=== PATIENT | male | born 1945 | race Caucasian/White ===

== ENCOUNTER 2017-11-06 14:49 | Inpatient (IN) | payer OTHER ==
[2017-11-06] MEDS ORDERED: ACETAMINOPHEN 325 MG TAB PO PRN (15:38)
[2017-11-06] MEDS ORDERED: POLYETHYLENE GLYCOL 3350 17 GM PKT PO PRN (15:38)
[2017-11-06] MEDS ORDERED: MAG HYDROX/AL HYDROX/SIMETH 30 ML UDCUP PO PRN (15:38)
--- NOTE | 2017-11-06 15:52 | PDOREHIP ---
Admission [facility] - Admission - 3 Day Assessment Period Admission Date/Day 1: 11/06/17 Day 2: 11/07/17 Day 3: 11/08/17 - Active Diagnoses Comorbidities and Co-existing Conditions at Admission: 87711. None of the Above - Skin Conditions # Stage 1 Pressure Ulcers-Admission: 0 # Stage 2 Pressure Ulcers-Admission: 0 # Stage 3 Pressure Ulcers-Admission: 0 # Stage 4 Pressure Ulcers-Admission: 0 # Unstageable Pressure Ulcers (Non-remove Dress)-Admission: 0 # Unstageable Pressure Ulcers (Slough/Eschar)-Admission: 0 # Unstageable Pressure Ulcers (Deep Tissue Injury)-Admission: 0
[2017-11-06] MEDS ORDERED: OXYMETAZOLINE 30 ML NASAL SPRAY EACHNARE PRN (16:31)
[2017-11-06] MEDS ORDERED: CETIRIZINE 10 MG TAB PO PRN (16:31)
[2017-11-06] MEDS ORDERED: CALCIUM CARBONATE 500 MG CHEWABLE TAB PO PRN (16:31)
[2017-11-06] MEDS ORDERED: NITROGLYCERIN 0.4 MG BTL SL PRN (16:31)
[2017-11-06] MEDS ORDERED: ALBUTEROL 60 PUFFS/8 GM MDI IH PRN (16:31)
[2017-11-06] MEDS ORDERED: LACTULOSE 20 GM/30 ML UDCUP PO PRN (17:15)
--- NOTE | 2017-11-06 17:51 | GHP ---
DATE OF ADMISSION: 11/06/2017 TIME OF EVALUATION: 3 p.m. REFERRING FACILITY: [facility]. REFERRING PHYSICIAN: DR. EPHRAIM MORA IMPAIRMENT GROUP: Sixteen-debility (noncardiac-nonpulmonary). DATE OF ONSET: 09/13/2017. Post-admission Physician Evaluation And Rehabilitation Treatment Plan. REHABILITATION DIAGNOSES: Debility, gait dysfunction, weakness. ETIOLOGIC DIAGNOSIS hemothorax leading to intubation with subsequent pulseless electrical activity arrest x2. HISTORY OF PRESENT ILLNESS: A 72-year-old male who was admitted to [facility] from [facility] after a PEA arrest on 10/18/2017, secondary to probable hypoxia. This event required CPR x7 minutes. He is status post cardiac catheterization with DIANNE placed on 10/10/2017. He had been recently discharged from [facility] to [facility] on 10/13/2017, after a prolonged hospital course. The patient had positive sputum culture for Pseudomonas on October 13, 2017, at [facility] and was started on antibiotics. He had been initially admitted to [facility] for a VATS procedure on 09/15/2017 for hemothorax, complicated by PEA arrest with subsequent episode of ventricular tachycardia and ARDS. He required tracheostomy on 09/25/2017, with PEG tube placement 09/27/2017. He was subsequently decannulated on 11/02/2017. During that time, he had tube feeds with a PEG tube, in which the tube feeds were discontinued on 10/29, and patient was tolerating DD3 diet at the time of discharge from [facility]. He underwent transesophageal echocardiogram without change from September 18: Left ventricular systolic function is normal, left ventricular wall motion normal, trace aortic regurgitation, trace mitral regurgitation. Prior to discharge, he was noted to have recent fall to knee at urinal secondary urinary urgency when he did not use the call worthy. Just prior to discharge, he reports that he was ambulating short distances around the floor with using a front- wheeled walker with standby assist/contact guard assist. Currently, he reports he feels somewhat lightheaded and weak and fatigues easily, but otherwise, has no further complaints. LABORATORY STUDIES: Sputum culture at [place] prior to 10/18 admission, positive for Pseudomonas. Most recent WBC count 6.1, hemoglobin 9.0. UA negative. Creatinine 0.7. Troponin 0.426. PRECAUTIONS: He is a fall risk. ACTIVE COMORBIDITIES: No history of diabetes. PAST MEDICAL HISTORY: Cardiac arrest secondary to respiratory disorder. Chronic atrial fibrillation. BPH. Obstructive sleep apnea. Has CPAP, which he uses at night. He has brought his CPAP unit into this facility. Obesity with BMI ranging 30.0-34.9. Prediabetes. Hyperlipidemia. Hypertension. Heart failure with preserved ejection fraction. Primary open-angle glaucoma. Exposure keratopathy. Chronic respiratory failure. Coronary artery disease without angina pectoris. History of delirium. Acute on chronic respiratory failure with hypoxemia. Allergic rhinitis. Depression. Divert diverticulosis. Low back pain. Long-term use of anticoagulants secondary to atrial fibrillation. PAST SURGICAL HISTORY: EP study 10/15/2017 without device placement. Status post bilateral knee arthroplasty, right, 07/07/2015; left 01/14/2016. Lumbar laminectomy for neurogenic claudication. Status post right lung biopsy and decortication. Myocardial ablation 10/12/2017. SOCIAL HISTORY: Nonsmoker. Lives with in a 2-story house. Plans on returning home following discharge. FUNCTIONAL HISTORY: The patient reports he was functioning fully independently prior to recent hospitalization. ADMISSION MEDICATIONS: Albuterol 2 puffs q.4 hours, amlodipine 5 mg p.o. daily , ASA 81 mg p.o. daily, Atorvastatin 40 mg at bedtime, azelastine HCL 2 mcg NS b.i.d., calcium carbonate 500 mg p.o. a.c. h.s., carvedilol 12.5 mg b.i.d., Zyrtec 10 mg p.o. daily, Clopidogrel 75 mg daily, Dorzolamide 2% 1 drop each eye daily, erythromycin ointment 0.5% apply each eye b.i.d., Proscar 5 mg p.o. daily, fluticasone spray 2 sprays nasal daily, guaifenesin 50 mg p.o. q.i.d., lactulose 20 mg p.o. at bedtime, latanoprost 1 drop each eye h.s., magnesium oxide 400 mg twice daily, melatonin 5 mg p.o. at bedtime. Mineral oil/ petrolatum 1 application OP daily, multivitamin/mineral/daily, nitroglycerin 0.4 mg sublingual q.5 minutes p.r.n. chest pain, Nystatin powder apply 1 TP b.i.d., oxymetazoline 2 sprays each nares daily, polyethylene glycol 17 g p.o. daily. Potassium citrate/citric acid 3 each tube daily, psyllium husk with sugar 1 each tube b.i.d., quetiapine 25 mg p.o. h.s., saliva substitute combo # 9 50 mm b.i.d., tamsulosin HCL 0.4 mg p.o. at bedtime, and timolol 0.5% 1 drop each eye b.i.d.. ALLERGIES: Statins, oxycodone. REVIEW OF SYSTEMS: HEENT: Denies tinnitus. Denies jaw pain. PULMONARY: Denies shortness of breath. CARDIAC: Denies chest pain or angina-like symptoms. GI: Denies dyspepsia. Denies constipation. Patient notes 2 bowel movements earlier today. : Denies hematuria. Denies frequency. Intermittent urgency. Denies suprapubic pain. MUSCULOSKELETAL: Currently denies neck or back pain, shoulder or hip girdle pain. NEUROLOGICAL: Reports numbness and tingling in that tips of digits 2 through 5 bilaterally. No other paresthesias noted. Denies difficulty with proprioception. ALLERGIES: He is allergic to statins, oxycodone. Lymph: Reports lower extremity swelling since bilateral total knee arthroplasty 2 years ago. CONSTITUTION: Reports that he is easily fatigued and feels weak. PHYSICAL EXAM: VITALS: Pulse is 92 and regular, blood pressure 145/87, respirations 13 and unlabored. CONSTITUTION: Pleasant, overweight male sitting in bedside chair. Well groomed. PSYCH: Pleasant and cooperative. Answers all questions appropriately. HEENT: EOMI, PERRLA. No cervical lymphadenopathy. CARDIOVASCULAR: Regular rate and rhythm, possible click. No obvious rubs or gallops. PULMONARY: Clear to auscultation bilaterally. ABDOMEN: Protuberant, soft, nontender. Hypoactive bowel sounds all 4 quadrants. PEG site insertion without erythema or drainage. LYMPH: +1 pitting edema both lower extremities. No upper extremity edema. MUSCULOSKELETAL: Normal cervical spine range of motion. Normal right and left glenohumeral range of motion. Range of motion of both hips deferred secondary to patient sitting in confined space. Normal pain-free range of motion right and left elbows, wrists, knees and ankles. NEUROLOGICAL: Alert and oriented x3. Could name 2 or 3 current events and completes several phrases. Cranial nerves 2-12 are grossly intact. Motor testing reveals 4+/5 right and left anterior and middle deltoid, biceps, triceps, brachioradialis, wrist and finger extensors and hand intrinsics. 4/5 right and left hip flexors, adductors, abductors, quadriceps, hamstrings, ankle dorsiflexors and plantar flexors. Sensation is intact throughout with the exception of the tips of digits 2 through 5 bilaterally and the lateral aspect of the right and left knee, which he states is chronic secondary to bilateral knee arthroplasties. Ability to go from sit to stand, and gait was not tested. CURRENT LEVEL OF FUNCTION: Per the preadmission screen, diet/feeding/ swallowing DD3 diet, grooming supervision, bathing TBA, dressing upper body supervision, lower body minimal assist. Toileting moderate bladder level of assistance, urinary urgency. Bed mobility supervision, transfers, min assist, sit to stand, equipment FWW balance, contact guard to minimal assist. Endurance fair. Gait 80 feet x2 with Min assist and FWW gait with narrow MARTA, forward-flexed posture. Wheelchair and stairs TBA. Communication WNL. Cognition, clear. Safety precautions, fall. Lower extremity strength, WFL. Upper extremity strength WFL. IMPRESSION/PLAN: 1. Debility, secondary to prolonged hospital course resulting in intubation and PEG tube placement with both cardiac and pulmonary complications. He was extubated and the tracheostomy tube was removed 3 days ago. PEG tube is in place. He will have integrated rehabilitation services including physical therapy, occupational therapy and speech/language therapy for 60 minutes per day , each discipline 5-7 days per week. His expected duration of stay is 5-7 days. It is expected upon discharge, he will most likely require either home services including physical therapy or outpatient physical therapy to continue with upper and lower extremities, as well as core strengthening. 2. Chronic respiratory failure, status post trach removal 11/02. He will continue with CPAP through mask at night. He has been on room air during the day. He has his own CPAP unit, which he will bring in to this facility beginning today. Incentive spirometry 10 puffs q.2 hours while awake. Patient also advised to perform 1 strong cough per hour. He does report some nasal congestion and therefore, he was encouraged to use normal saline nasal spray 2 squirts each nasal passage as needed. He can use Afrin 1 to 2 puffs each nostril for the next 3 days. Encourage patient to stay hydrated, as this will help minimize the nasal congestion. Nursing staff has been alerted to the patient's history of pulseless electrical activity secondary to mucus plugging and nursing staff, as well as PT and OT will encourage good pulmonary hygiene. 3. Coronary artery disease, status post drug-eluting stent x2, 10/10/2017. Resume warfarin on 11/09. Once the INR becomes therapeutic, can stop the ASA. Continue Plavix. 4. Chronic atrial fibrillation. Resume warfarin on 11/09, as discussed above. He will continue on Plavix. Continue Coreg at 12.5 mg twice daily. 5. Hypokalemia. Will check a BMP in the morning of 11/07. 6. Nutrition. PEG tube is still in place and tentatively should be scheduled to be removed in 2 weeks. 7. BPH. Continue tamsulosin 0.4 mg p.o. at bedtime. 8. Hyperlipidemia. Continue Lipitor 40 mg at bedtime. 9. Allergic rhinitis. Continue fluticasone spray 2 sprays each nostril daily. The patient also can use normal saline nasal spray to keep nasal passages moist and Afrin x3 days to increase nasal canal patency. 10. Hypomagnesemia.. Continue magnesium oxide 400 mg p.o. b.i.d. Will check magnesium level in a.m. 11. Insomnia. Melatonin 5 mg p.o. at bedtime. 12. Angina pectoris. Nitroglycerin 0.4 mg sublingual q.5 minutes x3 for angina -like symptoms. /[id number]/MODL MTDD
[2017-11-06] MEDS: CARVEDILOL 6.25 MG TAB PO SCH (18:29)
[2017-11-06] MEDS: guaiFENesin 200 MG/10 ML UDL PO SCH (20:35)
[2017-11-06] MEDS: ATORVASTATIN CALCIUM 40 MG TAB PO SCH (20:35)
[2017-11-06] MEDS: SENNOSIDES/DOCUSATE SODIUM TAB PO SCH ×2 (20:36→20:59)
[2017-11-06] MEDS: MELATONIN 3 MG TAB PO SCH (20:36)
[2017-11-06] MEDS: QUEtiapine FUMARATE 25 MG TAB PO SCH (20:36)
[2017-11-06] MEDS: TAMSULOSIN HCL 0.4 MG CAP PO SCH (20:36)
[2017-11-06] MEDS: MAGNESIUM OXIDE 400 MG TAB PO SCH (20:36)
[2017-11-06] MEDS: PSYLLIUM METAMUCIL 1 PKT PO SCH ×2 (20:37→20:55)
[2017-11-06] MEDS: BIOTENE DRY MOUTH ORAL RINSE 237 ML BTL MM SCH ×2 (20:42→20:57)
[2017-11-06] MEDS: NYSTATIN POWDER 15 GM BTL TP SCH ×2 (20:43→20:55)
[2017-11-06] MEDS: TIMOLOL 0.5% 15 ML OPHT.BTL EACHEYE SCH (20:44)
[2017-11-06] MEDS: AZELASTINE NASAL MDI NS SCH ×2 (20:44→20:52)
[2017-11-06] MEDS: ERYTHROMYCIN 0.5% 1 GM OPHT.OINT EACHEYE SCH ×2 (20:45→20:53)
[2017-11-07] MEDS: CLOPIDOGREL BISULFATE 75 MG TAB PO SCH (05:29)
[2017-11-07] MEDS: guaiFENesin 200 MG/10 ML UDL PO SCH ×2 (05:29→12:28)
[2017-11-07] MEDS: CARVEDILOL 6.25 MG TAB PO SCH ×2 (08:24→17:40)
[2017-11-07] MEDS: amLODIPine BESYLATE 5 MG TAB PO SCH (08:25)
[2017-11-07] MEDS: ASPIRIN 81 MG CHEWABLE TAB PO SCH (08:25)
[2017-11-07] MEDS: MAGNESIUM OXIDE 400 MG TAB PO SCH ×2 (08:25→20:50)
[2017-11-07] MEDS: FINASTERIDE 5 MG TAB PO SCH (08:25)
[2017-11-07] MEDS: PSYLLIUM METAMUCIL 1 PKT PO SCH ×2 (08:26→21:01)
[2017-11-07] MEDS: SENNOSIDES/DOCUSATE SODIUM TAB PO SCH ×2 (08:27→20:50)
--- NOTE | 2017-11-07 10:22 | SOAPPROG ---
SOAP Progress Note Assessment/Plan: Assessment: 1. Debility, secondary to prolonged hospital course resulting in intubation and PEG tube placement with both cardiac and pulmonary complications. He was extubated and the tracheostomy tube was removed 3 days ago. PEG tube is in place. He will have integrated rehabilitation services including physical therapy, occupational therapy and speech/language therapy for 60 minutes per day , each discipline 5-7 days per week. His expected duration of stay is 5-7 days. It is expected upon discharge, he will most likely require either home services including physical therapy or outpatient physical therapy to continue with upper and lower extremities, as well as core strengthening. 2. Chronic respiratory failure, status post trach removal 11/02. He will continue with CPAP through mask at night. He has been on room air during the day. He has his own CPAP unit, which he will bring in to this facility beginning today. Incentive spirometry 10 puffs q.2 hours while awake. Patient also advised to perform 1 strong cough per hour. He does report some nasal congestion and therefore, he was encouraged to use normal saline nasal spray 2 squirts each nasal passage as needed. He can use Afrin 1 to 2 puffs each nostril for the next 3 days. Encourage patient to stay hydrated, as this will help minimize the nasal congestion. Nursing staff has been alerted to the patient's history of pulseless electrical activity secondary to mucus plugging and nursing staff, as well as PT and OT will encourage good pulmonary hygiene. 3. Coronary artery disease, status post drug-eluting stent x2, 10/10/2017. Resume warfarin on 11/09. Once the INR becomes therapeutic, can stop the ASA. Continue Plavix. 4. Chronic atrial fibrillation. Resume warfarin on 11/09, as discussed above. He will continue on Plavix. Continue Coreg at 12.5 mg twice daily. POTASSIUM LEVEL PENDING THIS A.M. 5. Hypokalemia. Will check a BMP in the morning of 11/07. APPARENTLY THERE WAS DIFFICULTY WITH THE BLOOD DRAW THIS MORNING SO THIS IS CURRENTLY PENDING 6. Nutrition. PEG tube is still in place and tentatively should be scheduled to be removed in 2 weeks. 7. BPH. Continue tamsulosin 0.4 mg p.o. at bedtime. PATIENT STILL COMPLAINS OF URGENCY AND THEREFORE MAY BENEFIT FROM INCREASING TO 0.8 MG 8. Hyperlipidemia. Continue Lipitor 40 mg at bedtime. 9. Allergic rhinitis. Continue fluticasone spray 2 sprays each nostril daily. The patient also can use normal saline nasal spray to keep nasal passages moist and Afrin x3 days to increase nasal canal patency. 10. Hypomagnesemia.. Continue magnesium oxide 400 mg p.o. b.i.d. . MAGNESIUM LEVEL PENDING THIS A.M. 11. Insomnia. Melatonin 5 mg p.o. at bedtime. 12. Angina pectoris. Nitroglycerin 0.4 mg sublingual q.5 minutes x3 for angina -like symptoms. Plan: 11/07/17 10:18 Subjective: HE REPORTS HE HAD AN EPISODE OF URINARY URGENCY LAST NIGHT WHICH RESULTED IN SOME INCONTINENCE BECAUSE HE COULD NOT FIND THE CALL BUTTON OR THE URINAL BEDSIDE Objective: Vital Signs Temp Pulse Resp BP Pulse Ox 36.5 C 80 20 117/72 97 11/07/17 08:00 11/07/17 08:00 11/07/17 08:00 11/07/17 08:00 11/07/17 08:00 11/06/17 11/07/17 11/08/17 05:59 05:59 05:59 Intake Total 680 Output Total 0 Balance 680 Physical Exam - Physical Exam General Appearance: WD/WN, alert, no apparent distress Neck: non-tender, normal inspection Respiratory: lungs clear, normal breath sounds, other (NO E TO A CHANGES) Cardiac/Chest: edema, irregularly irregular Abdomen: normal bowel sounds, non-tender, soft (ABDOMEN SLIGHTLY DISTENDED), other (PROTUBERANT) Skin: normal color, warm/dry Neuro/Psych: normal mood/affect, oriented x 3, motor weakness (MILD LOWER EXTREMITY WEAKNESS OF PELVIC GIRDLE MUSCLES, HIP FLEXORS AND QUADRICEPS. 4/5 TIBIALIS ANTERIOR)
[2017-11-07] MEDS: TIMOLOL 0.5% 15 ML OPHT.BTL EACHEYE SCH ×2 (11:29→20:54)
[2017-11-07 11:31] LABS: PLATELET COUNT 227 10^3/uL (150-400)
[2017-11-07] MEDS: DORZOLAMIDE 2% OPTH DROPS EACHEYE SCH (11:33)
[2017-11-07] MEDS: AZELASTINE NASAL MDI NS SCH ×2 (11:33→21:00)
[2017-11-07] MEDS: ERYTHROMYCIN 0.5% 1 GM OPHT.OINT EACHEYE SCH ×2 (11:34→21:00)
[2017-11-07] MEDS: FLUTICASONE NASAL 120 SPRAYS/16 GM MDI EACHNARE SCH (11:35)
[2017-11-07] MEDS: MULTIVIT/MINERAL/FERR GLUC 15 ML UDL PO SCH (11:36)
[2017-11-07] MEDS: POTASSIUM CITRATE 10 MEQ TAB PO SCH (11:37)
[2017-11-07] MEDS: NYSTATIN POWDER 15 GM BTL TP SCH ×2 (11:37→21:01)
[2017-11-07] MEDS: BIOTENE DRY MOUTH ORAL RINSE 237 ML BTL MM SCH ×2 (11:38→21:01)
[2017-11-07] MEDS ORDERED: guaiFENesin 200 MG/10 ML UDL PO PRN (13:06)
[2017-11-07] MEDS: QUEtiapine FUMARATE 25 MG TAB PO SCH (20:50)
[2017-11-07] MEDS: ATORVASTATIN CALCIUM 40 MG TAB PO SCH (20:50)
[2017-11-07] MEDS: TAMSULOSIN HCL 0.4 MG CAP PO SCH (20:50)
[2017-11-07] MEDS: MELATONIN 3 MG TAB PO SCH (20:51)
[2017-11-08] MEDS: CARVEDILOL 6.25 MG TAB PO SCH ×2 (07:26→18:44)
[2017-11-08] MEDS: FINASTERIDE 5 MG TAB PO SCH (08:30)
[2017-11-08] MEDS: POTASSIUM CITRATE 10 MEQ TAB PO SCH (08:30)
[2017-11-08] MEDS: amLODIPine BESYLATE 5 MG TAB PO SCH (08:30)
[2017-11-08] MEDS: ASPIRIN 81 MG CHEWABLE TAB PO SCH (08:30)
[2017-11-08] MEDS: CLOPIDOGREL BISULFATE 75 MG TAB PO SCH (08:32)
[2017-11-08] MEDS: DORZOLAMIDE 2% OPTH DROPS EACHEYE SCH (08:33)
[2017-11-08] MEDS: TIMOLOL 0.5% 15 ML OPHT.BTL EACHEYE SCH ×2 (08:33→20:02)
[2017-11-08] MEDS: FLUTICASONE NASAL 120 SPRAYS/16 GM MDI EACHNARE SCH (08:34)
[2017-11-08] MEDS: ERYTHROMYCIN 0.5% 1 GM OPHT.OINT EACHEYE SCH (08:38)
[2017-11-08] MEDS: AZELASTINE NASAL MDI NS SCH (08:38)
[2017-11-08] MEDS: MAGNESIUM OXIDE 400 MG TAB PO SCH (08:38)
[2017-11-08] MEDS: BIOTENE DRY MOUTH ORAL RINSE 237 ML BTL MM SCH (08:39)
[2017-11-08] MEDS: NYSTATIN POWDER 15 GM BTL TP SCH (08:39)
[2017-11-08] MEDS: PSYLLIUM METAMUCIL 1 PKT PO SCH (08:39)
[2017-11-08] MEDS: SENNOSIDES/DOCUSATE SODIUM TAB PO SCH ×2 (08:39→20:12)
[2017-11-08] MEDS ORDERED: NYSTATIN POWDER 15 GM BTL TP PRN (09:33)
[2017-11-08] MEDS: MULTIVIT/MINERAL/FERR GLUC 15 ML UDL PO SCH (09:59)
--- NOTE | 2017-11-08 10:49 | SOAPPROG ---
SOAP Progress Note Assessment/Plan: Assessment: Debility, secondary to prolonged hospital course resulting in intubation and PEG tube placement with both cardiac and pulmonary complications. * Initial functional independence measure 92 on 11/08/2017. Scored in the 20s over 56 on the Manzo balance inventory. Independent for bed mobility. Transfers with a front wheeled walker and contact guard assist. Ambulated 150 ft with a front wheeled walker and count tacked guard assist. Did grooming and hygiene standing with standby assist. Standby assist for upper body and lower body dressing with cues for stability. Shower and toilet transfers were done with standby assist. Toileting was done with standby assist. * Continue PT and OT to optimize mobility and activities of daily living towards the independent to modified independent level. Hospital delirium and possible cognitive dysfunction. * Has mild deficit to higher level attention and executive function and speed of processing. * Continue FUNERAL DRIVER Chronic respiratory failure, status post trach removal 11/02. He will continue with CPAP through mask at night. Incentive spirometry 10 puffs q.2 hours while awake. Coronary artery disease, status post drug-eluting stent x2, 10/10/2017. Resume warfarin on 11/09. Once the INR becomes therapeutic, can stop the ASA. Continue Plavix. Chronic atrial fibrillation. Resume warfarin on 11/09. He will continue on clopidogrel. Continue Coreg at 12.5 mg twice daily. Hypokalemia. Normal potassium on labs 11/07/2017. He wants to stop potassium supplement and use a potassium salt to Sprinkle his food. Will do so per his request and recheck basic metabolic profile on 11/10/2017 Nutrition. PEG tube is still in place and should be scheduled to be removed after 11/17/2017. BPH. Continue finasteride, and tamsulosin 0.4 mg p.o. at bedtime. * Reports postvoid residual was measured at 50 cc during his hospitalization. Might consider bladder anticholinergic. He thinks symptoms are improving on discussion 11/08/2017. Dyslipidemia. Continue Lipitor 40 mg at bedtime. Allergic rhinitis. Continue fluticasone spray 2 sprays each nostril daily. * He does report some nasal congestion and therefore, he was encouraged to use normal saline nasal spray 2 squirts each nasal passage as needed. He can use Afrin 1 to 2 puffs each nostril 3 days. Encourage patient to stay hydrated, as this will help minimize the nasal congestion. Hypomagnesemia.. * Resolved on labs 11/07/2017. Discontinue magnesium supplement. Recheck on 11/10/2017. Insomnia. Melatonin 5 mg p.o. at bedtime. Angina pectoris. Nitroglycerin 0.4 mg sublingual q.5 minutes x3 for angina- like symptoms. DISPOSITION: Attended staffing, 15 min. Discussed with case management, nursing, dietitian, PT, OT, FUNERAL DRIVER. Lives with his . Has 2 sons, 1 in [facility] and 1 out of [facility]. He and his hope to travel with an SUV and a trailer. They may rent a stair lift for stairs within the house in the short term. Tentative discharge date set for 11/15/2017. 11/08/17 14:16 Objective: Vital Signs Temp Pulse Resp BP Pulse Ox 36.6 C 74 17 111/63 93 11/08/17 06:49 11/08/17 06:49 11/08/17 06:49 11/08/17 06:49 11/08/17 06:49 Laboratory Results 11/07/17 09:30 11/07/17 09:30 11/07/17 11/08/17 11/09/17 05:59 05:59 05:59 Intake Total 680 1340 360 Output Total 0 100 Balance 680 1240 360 Physical Exam - Physical Exam General Appearance: WD/WN, alert, no apparent distress, obese EENT: PERRL/EOMI, other (No conjunctival erythema), No scleral icterus (R), No scleral icterus (L), No pale conjunctiva (R), No pale conjunctiva (L) Respiratory: normal breath sounds, No crackles, No rhonchi, No wheezing Cardiac/Chest: regular rate, rhythm, edema (1+ bilateral pretibial), No JVD, No diastolic murmur, No systolic murmur Abdomen: normal bowel sounds, non-tender, soft, No distended Skin: normal color, warm/dry, other (G tube site clean) Neuro/Psych: no motor/sensory deficits, alert, normal mood/affect, oriented x 3 ICD10 Worksheet Patient Problems: Problems Problem Status Onset Debility Acute - ICD10 Problem Qualifiers (1) Debility
[2017-11-08] MEDS: ATORVASTATIN CALCIUM 40 MG TAB PO SCH (20:01)
[2017-11-08] MEDS: MELATONIN 3 MG TAB PO SCH (20:01)
[2017-11-08] MEDS: QUEtiapine FUMARATE 25 MG TAB PO SCH (20:01)
[2017-11-08] MEDS: TAMSULOSIN HCL 0.4 MG CAP PO SCH (20:01)
[2017-11-09] MEDS: CLOPIDOGREL BISULFATE 75 MG TAB PO SCH (06:28)
[2017-11-09] MEDS: CARVEDILOL 6.25 MG TAB PO SCH ×2 (08:11→18:01)
[2017-11-09 08:12] LABS: INR 1.06 (0.83-1.16)
[2017-11-09] MEDS: MULTIVIT/MINERAL/FERR GLUC 15 ML UDL PO SCH (08:24)
[2017-11-09] MEDS: SENNOSIDES/DOCUSATE SODIUM TAB PO SCH ×2 (08:24→20:30)
[2017-11-09] MEDS: ASPIRIN 81 MG CHEWABLE TAB PO SCH (08:24)
[2017-11-09] MEDS: amLODIPine BESYLATE 5 MG TAB PO SCH (08:24)
[2017-11-09] MEDS: FINASTERIDE 5 MG TAB PO SCH (08:24)
[2017-11-09] MEDS: DORZOLAMIDE 2% OPTH DROPS EACHEYE SCH ×2 (08:25→20:42)
[2017-11-09] MEDS: FLUTICASONE NASAL 120 SPRAYS/16 GM MDI EACHNARE SCH (08:25)
[2017-11-09] MEDS: PETROLAT,WHT/MIN OIL/SOD CHL 3.5 GM OPHT.OINT EACHEYE PRN ×2 (08:26→20:30)
[2017-11-09] MEDS: TIMOLOL 0.5% 15 ML OPHT.BTL EACHEYE SCH ×2 (08:27→20:31)
--- NOTE | 2017-11-09 12:39 | SOAPPROG ---
SOAP Progress Note Assessment/Plan: Assessment: Debility, secondary to prolonged hospital course resulting in intubation and PEG tube placement, with both cardiac and pulmonary complications. * Initial functional independence measure 92 on 11/08/2017. Scored in the 20s over 56 on the Manzo balance inventory. Independent for bed mobility. Transfers with a front wheeled walker and contact guard assist. Ambulated 150 ft with a front wheeled walker and contact guard assist. Did grooming and hygiene standing with standby assist. Standby assist for upper body and lower body dressing with cues for stability. Shower and toilet transfers were done with standby assist. Toileting was done with standby assist. * Continue PT and OT to optimize mobility and activities of daily living towards the independent to modified independent level. Hospital delirium and possible cognitive dysfunction. * Has mild deficit to higher level attention and executive function and speed of processing. * Continue MILK POWDER GRINDER Chronic respiratory failure, status post trach removal 11/02. He will continue with CPAP through mask at night. Incentive spirometry 10 puffs q.2 hours while awake. Coronary artery disease, status post drug-eluting stent x2, 10/10/2017. Resume warfarin on 11/09. Once the INR becomes therapeutic, can stop the ASA. Continue clopidogrel. Chronic atrial fibrillation. Resume warfarin on 11/09. He will continue on clopidogrel. Continue Coreg at 12.5 mg twice daily. Hypokalemia. Normal potassium on labs 11/07/2017. He wants to stop potassium supplement and use a potassium salt to Sprinkle his food. Will do so per his request and recheck basic metabolic profile on 11/10/2017 Nutrition. PEG tube is still in place and should be scheduled to be removed after 11/17/2017. * Had on iron panel to labs from 11/07/2017. Discontinue multivitamin liquid formulation 11/09/2017 and start capsule or tablet form.. Consider iron supplement if needed. BPH. Continue finasteride, and tamsulosin 0.4 mg p.o. at bedtime. * Reports postvoid residual was measured at 50 cc during his hospitalization. Might consider bladder anticholinergic. He thinks symptoms are improving on discussion 11/08/2017. * Discontinue hypnotics 11/09/2017 and observe for continence overnight. Dyslipidemia. Continue atorvastatin 40 mg at bedtime. Allergic rhinitis. Continue fluticasone spray 2 sprays each nostril daily. * He does report some nasal congestion and therefore, he was encouraged to use normal saline nasal spray 2 squirts each nasal passage as needed. He can use Afrin 1 to 2 puffs each nostril for 3 days. Encourage patient to stay hydrated , as this will help minimize the nasal congestion. Hypomagnesemia.. * Resolved on labs 11/07/2017. Discontinue magnesium supplement. Recheck on 11/10/2017. Insomnia. Discontinue melatonin and quetiapine 11/09/2017. Observe for insomnia. Angina pectoris. Nitroglycerin 0.4 mg sublingual q.5 minutes x3 for angina- like symptoms. DISPOSITION: Lives with his . Has 2 sons, 1 in [facility] and 1 out of [facility]. He and his hope to travel with an SUV and a trailer. They may rent a stair lift for stairs within the house in the short term. Tentative discharge date set for 11/15/2017. 11/09/17 12:33 Subjective: Reports urinary frequency and urgency overnight. He does not wake up soon enough to be able to get to the bathroom and has had some incontinence. He requests discontinuation of sleeping medication hoping that he will have more awareness of full bladder and get to the bathroom without incontinence. He would like to be changed to the pill rather than a liquid multivitamin. He understands that his current liquid contains iron and not sure if he needs that. Objective: Vital Signs Temp Pulse Resp BP Pulse Ox 36.9 C 76 16 106/66 96 11/09/17 06:28 11/09/17 06:28 11/09/17 06:28 11/09/17 06:28 11/09/17 06:28 Laboratory Results 11/07/17 09:30 11/07/17 09:30 11/08/17 11/09/17 11/10/17 05:59 05:59 05:59 Intake Total 1340 1810 Output Total 100 1450 Balance 1240 360 PT 14.0 SEC (12.0-15.0) 11/09/17 06:30 INR 1.06 (0.83-1.16) 11/09/17 06:30 Physical Exam - Physical Exam General Appearance: WD/WN, alert, no apparent distress Respiratory: normal breath sounds, crackles (Few, expiratory, right lower lobe) , No rhonchi, No wheezing Cardiac/Chest: regular rate, rhythm, edema (Trace bilateral pretibial), No diastolic murmur, No systolic murmur Skin: normal color, warm/dry Neuro/Psych: alert, normal mood/affect, oriented x 3 ICD10 Worksheet Patient Problems: Problems Problem Status Onset Debility Acute - ICD10 Problem Qualifiers (1) Debility
[2017-11-09] MEDS ORDERED: WARFARIN SODIUM 7.5 MG TAB PO SCH (16:00)
[2017-11-09] MEDS ORDERED: WARFARIN SODIUM 7.5 MG TAB PO ONE (16:15)
[2017-11-09] MEDS: ATORVASTATIN CALCIUM 40 MG TAB PO SCH (20:29)
[2017-11-09] MEDS: TAMSULOSIN HCL 0.4 MG CAP PO SCH (20:30)
[2017-11-10] MEDS: CLOPIDOGREL BISULFATE 75 MG TAB PO SCH (05:51)
[2017-11-10] MEDS: FINASTERIDE 5 MG TAB PO SCH (08:15)
[2017-11-10] MEDS: CARVEDILOL 6.25 MG TAB PO SCH ×2 (08:15→17:53)
[2017-11-10] MEDS: ASPIRIN 81 MG CHEWABLE TAB PO SCH (08:15)
[2017-11-10] MEDS: amLODIPine BESYLATE 5 MG TAB PO SCH (08:16)
[2017-11-10] MEDS: MULTIVITAMINS 1 EACH TAB PO SCH (08:16)
[2017-11-10] MEDS: DORZOLAMIDE 2% OPTH DROPS EACHEYE SCH ×2 (08:18→21:09)
[2017-11-10] MEDS: SENNOSIDES/DOCUSATE SODIUM TAB PO SCH ×2 (08:20→21:16)
[2017-11-10] MEDS: TIMOLOL 0.5% 15 ML OPHT.BTL EACHEYE SCH ×2 (08:28→21:09)
[2017-11-10] MEDS: FLUTICASONE NASAL 120 SPRAYS/16 GM MDI EACHNARE SCH (08:28)
[2017-11-10 09:18] LABS: INR 1.1 (0.8-1.2); PROTIME(PATIENT) 12.7 SEC (12-15)
--- NOTE | 2017-11-10 10:31 | SOAPPROG ---
SOAP Progress Note Assessment/Plan: Assessment: Debility, secondary to prolonged hospital course resulting in intubation and PEG tube placement, with both cardiac and pulmonary complications. * Initial functional independence measure 92 on 11/08/2017. Scored in the 20s over 56 on the Manzo balance inventory. Independent for bed mobility. Transfers with a front wheeled walker and contact guard assist. Ambulated 150 ft with a front wheeled walker and contact guard assist. Did grooming and hygiene standing with standby assist. Standby assist for upper body and lower body dressing with cues for stability. Shower and toilet transfers were done with standby assist. Toileting was done with standby assist. * Continue PT and OT to optimize mobility and activities of daily living towards the independent to modified independent level. Hospital delirium and possible cognitive dysfunction. * Has mild deficit to higher level attention and executive function and speed of processing. 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 He will continue with CPAP mask at night. Incentive spirometry 10 puffs q.2 hours while awake. Coronary artery disease, status post drug-eluting stent x2, 10/10/2017. Resume warfarin on 11/09. Once the INR becomes therapeutic, can stop the ASA. Continue clopidogrel. Chronic atrial fibrillation. Resume warfarin on 11/09. Continue Coreg at 12.5 mg twice daily. * INR to be tested with point of care finger stick test which will be available from [facility] lab at [facility] [address] the [address] on Monday11/11/2017 and then Monday through Monday. * Continue management per pharmacy. Hypokalemia. Normal potassium on labs 11/07/2017. He wants to stop potassium supplement and use a potassium salt to Sprinkle his food. Will do so per his request. * Very difficult blood draw. Repeat BMP could not be done today, 11/10/2017. Nutrition. PEG tube is still in place and should be scheduled to be removed after 11/17/2017. * Not iron deficient; added iron panel on to labs from 11/07/2017. Discontinue multivitamin liquid formulation 11/09/2017 and start capsule or tablet form.. BPH. Continue finasteride, and tamsulosin 0.4 mg p.o. at bedtime. * Reports postvoid residual was measured at 50 cc during his hospitalization. Might consider bladder anticholinergic. He thinks symptoms are improving on discussion 11/08/2017. * Discontinued hypnotics 11/09/2017 and was not incontinent. Dyslipidemia. Continue atorvastatin 40 mg at bedtime. Allergic rhinitis. Continue fluticasone spray 2 sprays each nostril daily. * He does report some nasal congestion and therefore, he was encouraged to use normal saline nasal spray 2 squirts each nasal passage as needed. He can use Afrin 1 to 2 puffs each nostril for 3 days. Encourage patient to stay hydrated , as this will help minimize the nasal congestion. Hypomagnesemia.. * Resolved on labs 11/07/2017. Discontinue magnesium supplement. Blood could not be drawn for recheck 11/10/2017. Insomnia. Discontinue melatonin and quetiapine 11/09/2017. Observe for insomnia. Angina pectoris. Nitroglycerin 0.4 mg sublingual q.5 minutes x3 for angina- like symptoms. DISPOSITION: Lives with his . Has 2 sons, 1 in [facility] and 1 out of [facility]. He and his hope to travel with an SUV and a trailer. They may rent a stair lift for stairs within the house in the short term. Tentative discharge date set for 11/15/2017. 11/10/17 14:39 Subjective: No complaints. Had no urinary incontinence overnight. Thinks not taking a sleeping medication helped. Did not sleep as well but does not want to resume sleeping medication. Objective: Vital Signs Temp Pulse Resp BP Pulse Ox 36.4 C 68 16 141/68 H 95 11/10/17 06:13 11/10/17 08:15 11/10/17 06:13 11/10/17 08:16 11/10/17 06:13 Laboratory Results 11/07/17 09:30 11/09/17 11/10/17 11/11/17 05:59 05:59 05:59 Intake Total 1810 580 150 Output Total 1450 900 100 Balance 360 -320 50 PT 12.7 SEC (12-15) 11/10/17 08:45 INR 1.1 (0.8-1.2) 11/10/17 08:45 Physical Exam - Physical Exam General Appearance: WD/WN, alert, no apparent distress Respiratory: No respiratory distress, No accessory muscle use Skin: normal color, warm/dry Neuro/Psych: alert, normal mood/affect, oriented x 3 ICD10 Worksheet Patient Problems: Problems Problem Status Onset Debility Acute - ICD10 Problem Qualifiers (1) Debility
[2017-11-10] MEDS ORDERED: WARFARIN SODIUM 7.5 MG TAB PO SCH (16:00)
[2017-11-10] MEDS: TAMSULOSIN HCL 0.4 MG CAP PO SCH (21:08)
[2017-11-10] MEDS: ATORVASTATIN CALCIUM 40 MG TAB PO SCH (21:08)
[2017-11-11] MEDS: CLOPIDOGREL BISULFATE 75 MG TAB PO SCH (06:22)
[2017-11-11] MEDS: ASPIRIN 81 MG CHEWABLE TAB PO SCH (08:07)
[2017-11-11] MEDS: PANTOPRAZOLE SODIUM 40 MG TAB PO SCH ×2 (08:08→08:14)
[2017-11-11] MEDS: FLUTICASONE NASAL 120 SPRAYS/16 GM MDI EACHNARE SCH (08:08)
[2017-11-11] MEDS: MULTIVITAMINS 1 EACH TAB PO SCH (08:08)
[2017-11-11] MEDS: amLODIPine BESYLATE 5 MG TAB PO SCH (08:09)
[2017-11-11] MEDS: DORZOLAMIDE 2% OPTH DROPS EACHEYE SCH ×2 (08:09→20:16)
[2017-11-11] MEDS: TIMOLOL 0.5% 15 ML OPHT.BTL EACHEYE SCH ×2 (08:09→20:17)
[2017-11-11] MEDS: FINASTERIDE 5 MG TAB PO SCH (08:10)
[2017-11-11] MEDS: CARVEDILOL 6.25 MG TAB PO SCH ×2 (08:10→17:26)
[2017-11-11] MEDS: SENNOSIDES/DOCUSATE SODIUM TAB PO SCH ×2 (08:10→21:49)
--- NOTE | 2017-11-11 13:31 | HOSPPROG ---
Hospitalist Progress Note Assessment/Plan: Debility, secondary to prolonged hospital course resulting in intubation and PEG tube placement, with both cardiac and pulmonary complications. * Initial functional independence measure 92 on 11/08/2017. Scored in the 20s over 56 on the Manzo balance inventory. Independent for bed mobility. Transfers with a front wheeled walker and contact guard assist. Ambulated 150 ft with a front wheeled walker and contact guard assist. Did grooming and hygiene standing with standby assist. Standby assist for upper body and lower body dressing with cues for stability. Shower and toilet transfers were done with standby assist. Toileting was done with standby assist. * Continue PT and OT to optimize mobility and activities of daily living towards the independent to modified independent level. Hospital delirium and possible cognitive dysfunction. * Has mild deficit to higher level attention and executive function and speed of processing. * Continue SINGER AND UNLOADER Chronic respiratory failure, status post trach removal 11/02. He will continue with CPAP mask at night. Incentive spirometry 10 puffs q.2 hours while awake. Coronary artery disease, status post drug-eluting stent x2, 10/10/2017. Resume warfarin on 11/09. Once the INR becomes therapeutic, can stop the ASA. Continue clopidogrel. Chronic atrial fibrillation. Resume warfarin on 11/09. Continue Coreg at 12.5 mg twice daily. * INR to be tested with point of care finger stick test which will be available from [facility] lab at [facility] cross the [address] on Monday11/11/2017 and then Monday through Monday. * Continue management per pharmacy. Hypokalemia. Normal potassium on labs 11/07/2017. He wants to stop potassium supplement and use a potassium salt to Sprinkle his food. Will do so per his request. * Very difficult blood draw. Repeat BMP could not be done today, 11/10/2017. Nutrition. PEG tube is still in place and should be scheduled to be removed after 11/17/2017. * Not iron deficient; added iron panel on to labs from 11/07/2017. Discontinue multivitamin liquid formulation 11/09/2017 and start capsule or tablet form.. BPH. Continue finasteride, and tamsulosin 0.4 mg p.o. at bedtime. * Reports postvoid residual was measured at 50 cc during his hospitalization. Might consider bladder anticholinergic. He thinks symptoms are improving on discussion 11/08/2017. * Discontinued hypnotics 11/09/2017 and was not incontinent. Dyslipidemia. Continue atorvastatin 40 mg at bedtime. Allergic rhinitis. Continue fluticasone spray 2 sprays each nostril daily. * He does report some nasal congestion and therefore, he was encouraged to use normal saline nasal spray 2 squirts each nasal passage as needed. He can use Afrin 1 to 2 puffs each nostril for 3 days. Encourage patient to stay hydrated , as this will help minimize the nasal congestion. Hypomagnesemia.. * Resolved on labs 11/07/2017. Discontinue magnesium supplement. Blood could not be drawn for recheck 11/10/2017. Insomnia. Discontinue melatonin and quetiapine 11/09/2017. Observe for insomnia. Angina pectoris. Nitroglycerin 0.4 mg sublingual q.5 minutes x3 for angina- like symptoms. DISPOSITION: Lives with his . Has 2 sons, 1 in [facility] and 1 out of [facility]. He and his hope to travel with an SUV and a trailer. They may rent a stair lift for stairs within the house in the short term. Tentative discharge date set for 11/15/2017. Subjective: no new complaints. rehab going well. eating Objective: Vital Signs Temp Pulse Resp BP Pulse Ox 36.4 C 73 16 122/73 H 92 11/11/17 06:28 11/11/17 08:10 11/11/17 06:28 11/11/17 08:10 11/11/17 06:28 Laboratory Results 11/07/17 09:30 11/10/17 06:00 11/10/17 11/11/17 11/12/17 05:59 05:59 05:59 Intake Total 580 1750 600 Output Total 900 100 200 Balance -320 1650 400 PT 12.7 SEC (12-15) 11/10/17 08:45 INR 1.1 (0.8-1.2) 11/10/17 08:45 - Physical Exam Constitutional: no apparent distress, appears nourished, not in pain Eyes: anicteric sclera, EOMI Ears, Nose, Mouth, Throat: moist mucous membranes Cardiovascular: regular rate and rhythym, systolic murmur, edema (1+) Gastrointestinal: normoactive bowel sounds, soft, non-tender abdomen, no palpable masses Skin: warm Neurologic: AAOx3 Psychiatric: interacting appropriately, not anxious, not encephalopathic, thought process linear ICD10 Worksheet Patient Problems: Problems Problem Status Onset Debility Acute
[2017-11-11] MEDS ORDERED: WARFARIN SODIUM 5 MG TAB PO SCH (16:00)
[2017-11-11] MEDS: ATORVASTATIN CALCIUM 40 MG TAB PO SCH (20:16)
[2017-11-11] MEDS: TAMSULOSIN HCL 0.4 MG CAP PO SCH (20:16)
[2017-11-12] MEDS: CLOPIDOGREL BISULFATE 75 MG TAB PO SCH (05:28)
[2017-11-12] MEDS: DORZOLAMIDE 2% OPTH DROPS EACHEYE SCH (07:53)
[2017-11-12] MEDS: CARVEDILOL 6.25 MG TAB PO SCH (07:54)
[2017-11-12] MEDS: FLUTICASONE NASAL 120 SPRAYS/16 GM MDI EACHNARE SCH (07:54)
[2017-11-12] MEDS: TIMOLOL 0.5% 15 ML OPHT.BTL EACHEYE SCH (07:54)
[2017-11-12] MEDS: MULTIVITAMINS 1 EACH TAB PO SCH (07:55)
[2017-11-12] MEDS: FINASTERIDE 5 MG TAB PO SCH (07:55)
[2017-11-12] MEDS: ASPIRIN 81 MG CHEWABLE TAB PO SCH (07:55)
[2017-11-12] MEDS: PANTOPRAZOLE SODIUM 40 MG TAB PO SCH (07:55)
[2017-11-12] MEDS: amLODIPine BESYLATE 5 MG TAB PO SCH (07:55)
[2017-11-12] MEDS: SENNOSIDES/DOCUSATE SODIUM TAB PO SCH (07:55)
--- NOTE | 2017-11-12 10:41 | HOSPPROG ---
Hospitalist Progress Note Assessment/Plan: * ?Fall - unsure what happened last night but seems like he fell and hit back of head. He now feels off, lethargic, dizzy and believes his speech is off and slurred. He does seem slower than yesterday but not that far off. He is on Coumadin and we haven't had an INR for 2 days. I think we are obligated to further evaluate his change in mental status in light of fall last night. He will be sent to [facility] ED. I talked with the ED physician. Debility, secondary to prolonged hospital course resulting in intubation and PEG tube placement, with both cardiac and pulmonary complications. * Initial functional independence measure 92 on 11/08/2017. Scored in the 20s over 56 on the Manzo balance inventory. Independent for bed mobility. Transfers with a front wheeled walker and contact guard assist. Ambulated 150 ft with a front wheeled walker and contact guard assist. Did grooming and hygiene standing with standby assist. Standby assist for upper body and lower body dressing with cues for stability. Shower and toilet transfers were done with standby assist. Toileting was done with standby assist. * Continue PT and OT to optimize mobility and activities of daily living towards the independent to modified independent level. Hospital delirium and possible cognitive dysfunction. * Has mild deficit to higher level attention and executive function and speed of processing. 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 He will continue with CPAP mask at night. Incentive spirometry 10 puffs q.2 hours while awake. Coronary artery disease, status post drug-eluting stent x2, 10/10/2017. Resume warfarin on 11/09. Once the INR becomes therapeutic, can stop the ASA. Continue clopidogrel. Chronic atrial fibrillation. Resume warfarin on 11/09. Continue Coreg at 12.5 mg twice daily. * INR to be tested with point of care finger stick test which will be available from [facility] lab at [facility] cross the street on Monday11/11/2017 and then Monday through Monday. * Continue management per pharmacy. Hypokalemia. Normal potassium on labs 11/07/2017. He wants to stop potassium supplement and use a potassium salt to Sprinkle his food. Will do so per his request. * Very difficult blood draw. Repeat BMP could not be done today, 11/10/2017. Nutrition. PEG tube is still in place and should be scheduled to be removed after 11/17/2017. * Not iron deficient; added iron panel on to labs from 11/07/2017. Discontinue multivitamin liquid formulation 11/09/2017 and start capsule or tablet form.. BPH. Continue finasteride, and tamsulosin 0.4 mg p.o. at bedtime. * Reports postvoid residual was measured at 50 cc during his hospitalization. Might consider bladder anticholinergic. He thinks symptoms are improving on discussion 11/08/2017. * Discontinued hypnotics 11/09/2017 and was not incontinent. Dyslipidemia. Continue atorvastatin 40 mg at bedtime. Allergic rhinitis. Continue fluticasone spray 2 sprays each nostril daily. * He does report some nasal congestion and therefore, he was encouraged to use normal saline nasal spray 2 squirts each nasal passage as needed. He can use Afrin 1 to 2 puffs each nostril for 3 days. Encourage patient to stay hydrated , as this will help minimize the nasal congestion. Hypomagnesemia.. * Resolved on labs 11/07/2017. Discontinue magnesium supplement. Blood could not be drawn for recheck 11/10/2017. Insomnia. Discontinue melatonin and quetiapine 11/09/2017. Observe for insomnia. Angina pectoris. Nitroglycerin 0.4 mg sublingual q.5 minutes x3 for angina- like symptoms. DISPOSITION: Lives with his . Has 2 sons, 1 in [facility] and 1 out of [facility]. He and his hope to travel with an SUV and a trailer. They may rent a stair lift for stairs within the house in the short term. Tentative discharge date set for 11/15/2017. Subjective: overnight RN found patient in bed bleeding from back of head. no witnessed fall. he doesn't remember falling. he has new headache back of head. says speech is worse than last week - but seems to have deteriorated over the last few days. he says he is feeling off, that something feels wrong. Objective: Vital Signs Temp Pulse Resp BP Pulse Ox 36.6 C 80 20 153/92 H 96 11/12/17 07:04 11/12/17 09:55 11/12/17 09:55 11/12/17 09:55 11/12/17 09:55 Laboratory Results 11/07/17 09:30 11/10/17 06:00 11/11/17 11/12/17 11/13/17 05:59 05:59 05:59 Intake Total 1750 1370 Output Total 100 200 Balance 1650 1170 PT 12.7 SEC (12-15) 11/10/17 08:45 INR 1.1 (0.8-1.2) 11/10/17 08:45 - Physical Exam Constitutional: no apparent distress, appears nourished Cardiovascular: regular rate and rhythym, systolic murmur Respiratory: no respiratory distress, no rales or rhonchi Gastrointestinal: normoactive bowel sounds, soft, non-tender abdomen, no palpable masses Skin: warm Neurologic: AAOx3, other (slow in answering questions, no obvious facial droop. no pronator drift. 5/5/ strength) Psychiatric: interacting appropriately ICD10 Worksheet Patient Problems: Problems Problem Status Onset Debility Acute
[2017-11-12 11:16] VITALS: BP 118/71
--- NOTE | 2017-11-13 09:38 | PDOREHIP ---
Admission [facility] - Admission - 3 Day Assessment Period Admission Date/Day 1: 11/06/17 Day 2: 11/07/17 Day 3: 11/08/17 - Active Diagnoses Comorbidities and Co-existing Conditions at Admission: 22640. None of the Above Discharge [facility] - Discharge - 3 Day Assessment Period 2 Days Prior to Anticipated Discharge Date: 11/13/17 1 Day Prior to Anticipated Discharge Date: 11/14/17 Anticipated Discharge Date: 11/15/17 - Discharge Skin Conditions Unhealed Pressure Ulcer (1 or more/Stage 1 or >)-Discharge: 0. No # Stage 1 Pressure Ulcers-Discharge: 0 # Stage 2 Pressure Ulcers-Discharge: 0 # of These Stage 2 Pressure Ulcers Present on Admission: 0 # Stage 3 Pressure Ulcers-Discharge: 0 # of These Stage 3 Pressure Ulcers Present on Admission: 0 # Stage 4 Pressure Ulcers-Discharge: 0 # of These Stage 4 Pressure Ulcers Present on Admission: 0 # Unstageable Pressure Ulcers (Non-remove Dress)-Discharge: 0 # These Unstageable Pressure Ulcers (NRD)-Present on Admit: 0 # Unstageable Pressure Ulcers (Slough/Eschar)-Discharge: 0 # These Unstageable Pressure Ulcers(Slough) Present on Admit: 0 # Unstageable Pressure Ulcers (Deep Tissue Injury)-Discharge: 0 # These Unstageable Pressure Ulcers (DTI) Present on Admit: 0
--- NOTE | 2017-11-13 13:57 | GDS ---
ADMITTING DIAGNOSIS: Debility, status post prolonged hospital course, including intubation and percutaneous endoscopic gastrostomy tube placement with cardiac and pulmonary complications. OTHER DISCHARGE DIAGNOSES: Debility, status post prolonged hospital course, including intubation and percutaneous endoscopic gastrostomy tube placement with cardiac and pulmonary complications. OTHER DISCHARGE DIAGNOSES: 1. Cognitive impairment, status post hospital delirium. 2. Coronary artery disease with drug-eluting stent placement. 3. Atrial fibrillation. 4. Benign prostatic hypertrophy. CONSULTATIONS: There were none. COMPLICATIONS: He suffered head trauma, possibly due to a fall. PROCEDURES: There were none. HISTORY AND HOSPITAL COURSE: This patient was admitted from [facility]. He had a prolonged hospital course. He was initially admitted for video-assisted thoracoscopy for a hemothorax. He suffered a PEA arrest, likely due to hypoxia, and had successful return of spontaneous circulation after CPR and ACLS. He had cardiac catheterization and drug-eluting stent placement. He had respiratory failure, intubation, and tracheostomy and PEG placement, and went to a long-term acute care hospital. There, he had pneumonia with a positive sputum culture for Pseudomonas. He was returned to [facility] where there was a second episode of PEA arrest. He was eventually stabilized medically. Tracheostomy was decannulated. He was taking nutrition by mouth. He was participating in rehabilitation and appropriate for inpatient rehabilitation. He did well initially. His functional independence measure was 92 on 11/08/2017 , consistent with assisted living level of function. However, he had balance impairment. He scored in the 20s over 56 on the Manzo Balance Inventory consistent with fall risk. He was independent with bed mobility. Transfers required contact guard assist with a front-wheeled walker. He was able to ambulate 150 feet with a front-wheeled walker and contact guard assist. Grooming and hygiene were done standing with standby assist, and he needed standby assist for upper and lower body dressing with cues for stability. Regarding hospital delirium, he was found to have mild deficits to higher level attention and executive function, as well as speed of processing and continued working on these issues with Speech and Language Pathology. Regarding atrial fibrillation, he was resumed on warfarin on 11/09/2017. He continued carvedilol at 12.5 mg b.i.d. The plan was to discontinue aspirin once he was therapeutic on warfarin. On 11/12/2017, he was noted to have some bleeding from the back of his head. It was unclear how he might have hit his head. He was in bed when he was found. During the morning, he developed headache and a change to his speech. He was sent to [facility] for further evaluation as he is a [facility] patient, and for further care, he needed to go to that hospital. He was found to have a subdural hematoma, and he was admitted. CONDITION ON DISCHARGE: Guarded. ACTIVITY: To be determined per the medical team at [facility]. DISCHARGE MEDICATIONS: 1. Acetaminophen 650 mg p.o. q.6 hours p.r.n. 2. Albuterol 2 puffs q.4 hours p.r.n. 3. Amlodipine 5 mg p.o. daily. 4. Aspirin 81 mg p.o. daily, but discontinue when INR is therapeutic on warfarin. 5. Atorvastatin 40 mg p.o. q.h.s. 6. Azelastine 2 mcg nasal spray b.i.d. 7. Calcium carbonate 500 mg p.o. a.c., h.s., p.r.n. 8. Carvedilol 12.5 mg p.o. b.i.d. with meals. 9. Cetirizine 10 mg p.o. daily p.r.n. 10. Clopidogrel 75 mg p.o. daily. 11. Dorzolamide 1 drop each eye daily. 12. Finasteride 5 mg p.o. daily. 13. Fluticasone nasal spray 2 sprays daily. 14. Guaifenesin 50 mg p.o. daily. 15. Lactulose 20 g p.o. q.6 hours p.r.n. 16. Latanoprost 0.005%, 1 drop each eye at h.s. 17. Melatonin 5 mg p.o. q.h.s. 18. Systane Nighttime eye ointment q.h.s. p.r.n. 19. Nitroglycerin 0.4 mg sublingual q.5 minutes p.r.n. chest pain. 20. Nystatin powder p.r.n. 21. Polyethylene glycol 17 g p.o. daily p.r.n. 22. Saliva substitute 15 mL b.i.d. 23. Tamsulosin 0.4 mg p.o. q.h.s. 24. Timolol 0.5%, 1 drop each eye b.i.d. ISSUES TO BE ADDRESSED AT FOLLOWUP: Primarily to determine treatment of subdural hematoma, and followup will be per the hospital physicians and neurosurgeons at [facility]. /[id number]/MODL MTDD
== END 2017-11-12 10:40 | disposition short-term general hospital (02) | DRG 945 ==
LOC: BREH 14:49
PROVIDERS: ADMIT Physical Medicine & Rehabilitation; ATTEND Internal Medicine
DX: Z51.89 Encounter for other specified aftercare (principal); R53.81 Other malaise; R53.1 Weakness; R26.81 Unsteadiness on feet; R41.89 Other symptoms and signs involving cognitive functions and awareness; Z86.74 Personal history of sudden cardiac arrest; S06.5X9A Traumatic subdural hemorrhage with loss of consciousness of unspecified duration, initial encounter; W18.39XA Other fall on same level, initial encounter; Y92.230 Patient room in hospital as the place of occurrence of the external cause; Y99.8 Other external cause status; I48.2 Chronic atrial fibrillation; N40.1 Benign prostatic hyperplasia with lower urinary tract symptoms; G47.33 Obstructive sleep apnea (adult) (pediatric); E66.9 Obesity, unspecified; E78.5 Hyperlipidemia, unspecified; I10 Essential (primary) hypertension; I50.30 Unspecified diastolic (congestive) heart failure; H40.1190 Primary open-angle glaucoma, unspecified eye, stage unspecified; J96.10 Chronic respiratory failure, unspecified whether with hypoxia or hypercapnia; I25.10 Atherosclerotic heart disease of native coronary artery without angina pectoris; Z95.5 Presence of coronary angioplasty implant and graft; E87.6 Hypokalemia; J30.9 Allergic rhinitis, unspecified; E83.42 Hypomagnesemia; G47.00 Insomnia, unspecified; Z93.1 Gastrostomy status; Z96.653 Presence of artificial knee joint, bilateral; Z79.01 Long term (current) use of anticoagulants; Z68.31 Body mass index [BMI] 31.0-31.9, adult
CPT/HCPCS: 92507-GN; 92523-GN; 92610-GN; 97110-GO; 97110-GP; 97112-GP; 97116-GP; 97161-GP; 97165-GO; 97530-GO; 97530-GP; 97535-GO

== ENCOUNTER 2017-11-16 15:16 | Inpatient (IN) | payer OTHER ==
[2017-11-16] MEDS ORDERED: LACTULOSE 20 GM/30 ML UDCUP PO PRN (15:36)
[2017-11-16] MEDS ORDERED: CALCIUM CARBONATE 500 MG CHEWABLE TAB PO PRN (15:36)
[2017-11-16] MEDS ORDERED: NITROGLYCERIN 0.4 MG BTL SL PRN (15:36)
[2017-11-16] MEDS ORDERED: POLYETHYLENE GLYCOL 3350 17 GM PKT PO PRN (15:36)
[2017-11-16] MEDS ORDERED: PETROLAT,WHT/MIN OIL/SOD CHL 3.5 GM OPHT.OINT OP PRN (15:36)
[2017-11-16] MEDS ORDERED: CETIRIZINE 10 MG TAB PO PRN (15:36)
[2017-11-16] MEDS ORDERED: guaiFENesin 200 MG/10 ML UDL PO SCH (16:00)
[2017-11-16] MEDS ORDERED: guaiFENesin 200 MG TAB PO PRN (16:04)
[2017-11-16] MEDS ORDERED: SODIUM CL NASAL 45 ML BTL EACHNARE PRN (16:55)
[2017-11-16] MEDS: guaiFENesin 200 MG/10 ML UDL PO PRN ×2 (18:05→23:24)
[2017-11-16] MEDS: CARVEDILOL 6.25 MG TAB PO SCH (18:05)
--- NOTE | 2017-11-16 18:26 | GHP ---
POST ADMISSION PHYSICIAN EVALUATION AND REHABILITATION TREATMENT PLAN DATE OF ADMISSION: 11/16/2017 DATE OF EVALUATION: 11/16/2017. TIME OF EVALUATION: 1555. REFERRING FACILITY: [facility]. IMPAIRMENT GROUP: [id number]. DATE OF ONSET: 11/12/2017. REFERRING PHYSICIAN: Dr. Barba. CONSULTING PHYSICIANS: He was seen by Neurosurgery, Dr. Hernández. REHABILITATION DIAGNOSIS: Subdural hematoma. NEUROLOGIC DIAGNOSIS: Traumatic, closed injury HISTORY OF PRESENT ILLNESS: This patient has had a very prolonged hospital course with several hospitalizations and a prior rehabilitation stay going back to September of this year. He had complications from a video-assisted thoracoscopy. Complications included a pulseless electrical activity cardiac arrest, aspiration pneumonia and ARDS, cardiac catheterization with placement of drug-eluting stents, intubation, tracheostomy and PEG placement for respiratory failure, and Pseudomonas pneumoniae. He was at [facility] from 10/13/2017 to 10/18/2017. Tracheostomy was decannulated during this 2nd hospitalization, and over time he was medically stabilized and made progress functionally. He was admitted to [facility] on 2017. He was progressing with therapies but he then presumably had an unwitnessed fall on 11/12/2017. He was found to have a scalp laceration, some confusion, and a headache. He was transferred to [facility] where a head CT showed a left subdural hematoma. He had stapling of the laceration on the occipital scalp. He had been restarted on warfarin for atrial fibrillation on 11/09/2017. He was also concurrently on aspirin and clopidogrel. The warfarin was discontinued due to his subdural hematoma, but he is continued on aspirin and clopidogrel. His hospital course has been complicated by fluid overload for which he has received an increased dosage of furosemide. LABORATORIES AND STUDIES DURING STAY: Basic metabolic profile today was entirely within normal limits. BUN was 17 and creatinine was 0.75. There was a chest x-ray 2 days ago on 11/14/2017 which showed hypoaeration at the bases, which was similar to his prior exam, and cardiomegaly with borderline pulmonary vascular congestion. A chest x-ray 2 days prior was consistent with congestive heart failure. A head CT, which was the final of serial head CTs, done on 11/15, showed stable subdural and subarachnoid hemorrhage, primarily over the left hemisphere leading to mild, generalized mass effect. On 11/13/[address] measured the subdural hemorrhage to be up to 12 mm in thickness and a subarachnoid hemorrhage was interhemispheric, right tentorial and perimesencephalic. CBC on 11/14/2017 showed mild anemia with hemoglobin of 9.6 and hematocrit of 31.1. Platelet count was normal. White blood cell count was not elevated. He had liver function tests on 11/13/2017. Albumin was 2.9. ALT and AST were normal. Total bilirubin was 2.1. He had a normal magnesium and phosphorus. INR drifted down from 1.39 on 11/12/2017 to 1.24 on 2017. Troponin was negative for myocardial ischemia. PRECAUTIONS: He is a fall risk and he has aspiration precautions. ACTIVE COMORBIDITIES: He has the tier 3 comorbidity of morbid obesity. He otherwise has no tier 1, tier 2, or tier 3 comorbidities. PAST MEDICAL HISTORY: 1. Chronic atrial fibrillation. 2. BPH. 3. Obstructive sleep apnea. 4. Obesity. 5. Prediabetes. 6. Dyslipidemia. 7. Hypertension. 8. Heart failure with preserved ejection fraction. 9. Primary open angle glaucoma. 10. Coronary artery disease. 11. Delirium. 12. Allergic rhinitis. 13. Depression. 14. Diverticulosis. 15. Lumbar spine degenerative disease PAST SURGICAL HISTORY: 1. Bilateral knee replacements. 2. Lumbar laminectomy for neurogenic claudication. 3. Right lung biopsy and decortication. 4. Myocardial ablation on 10/12/2017. 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 He lives with his in a 2- story house with 3 steps to enter. There is a flight of stairs to the 2nd floor and he and his are planning to install a stair glide. PREHOSPITAL MEDICATIONS: Per discharge summary from his prior rehabilitation stay: 1. Acetaminophen 650 mg p.o. q.6 hours p.r.n. 2. Albuterol 2 puffs q.4 hours p.r.n. 3. Amlodipine 5 mg p.o. daily. 4. Aspirin 81 mg p.o. daily, which was discontinued when his INR became therapeutic. 5. Atorvastatin 40 mg p.o. at bedtime. 6. Azelastine 2-mcg nasal spray b.i.d. 7. Calcium carbonate 500 mg p.o. before meals and at bedtime p.r.n. 8. Carvedilol 12.5 mg p.o. b.i.d. 9. Cetirizine 10 mg p.o. daily p.r.n. 10. Clopidogrel 75 mg p.o. daily. 11. Dorzolamide 1 drop each eye daily. 12. Finasteride 5 mg p.o. daily. 13. Fluticasone nasal spray 2 sprays daily. 14. Guaifenesin 50 mg p.o. daily. 15. Lactulose 20 g p.o. q.6 hours p.r.n. 16. Latanoprost 0.005% 1 drop each eye at bedtime. 17. Melatonin 5 mg p.o. at bedtime. 18. Systane nighttime eye ointment at bedtime p.r.n. 19. Nitroglycerin 0.4 mg sublingual q.5 minutes p.r.n. chest pain. 20. Nystatin powder p.r.n. 21. Polyethylene glycol 17 g p.o. daily p.r.n. 22. Saliva substitute 15 mL b.i.d. 23. Tamsulosin 0.4 mg p.o. at bedtime. 24. Timolol 0.5% 1 drop each eye b.i.d. ADMISSION MEDICATIONS: 1. Acetaminophen 650 mg p.o. q.6 hours p.r.n. 2. Albuterol 2 puffs q.4 hours p.r.n. 3. Amlodipine 5 mg p.o. daily. 4. Aspirin 81 mg p.o. daily. 5. Atorvastatin 40 mg p.o. at bedtime. 6. Benzonatate 100 mg p.o. t.i.d. daily p.r.n. 7. Calcium carbonate 500 mg p.o. before meals and at nighttime p.r.n. 8. Carvedilol 12.5 mg p.o. b.i.d. 9. Cetirizine 10 mg p.o. daily. 10. Clopidogrel 75 mg p.o. daily. 11. Dorzolamide 1 drop each eye daily. 12. Finasteride 5 mg p.o. daily. 13. Fluticasone 2 sprays each naris daily. 14. Furosemide 20 mg p.o. b.i.d. at 0900 and 1400. 15. Guaifenesin 50 mg p.o. daily. 16. Lactulose 20 g p.o. q.6 hours p.r.n. 17. Losartan 12.5 mg p.o. daily. 18. Refresh PM ointment p.r.n. dry eyes. 19. Multivitamin p.o. daily. 20. Nitroglycerin 0.4 mg sublingual q.5 minutes p.r.n. 21. Pantoprazole 40 mg p.o. daily. 22. Polyethylene glycol 17 g p.o. daily. 23. Senna/docusate 1 tab p.o. b.i.d. 24. Tamsulosin 0.4 mg p.o. at bedtime. 25. Timolol 1 drop each eye b.i.d. ALLERGIES: Listed to statins. However, he has been taking statin during his previous stay and through his recent hospitalization with no adverse effects. FAMILY HISTORY: Noncontributory. REVIEW OF SYSTEMS: He complains of nasal congestion and would like to take Afrin nasal spray. He complains of a cough and wonders if there is something we can do to loosen mucus as he has not been bringing up mucus. He says his cough and breathing feel somewhat worse when he is supine, but he has been able to sleep. He has a headache which is mild. He denies vision changes, difficulty swallowing, weakness, numbness or tingling of the extremities, nausea , vomiting, constipation, or diarrhea. He had a large incontinent void shortly after arriving on the rehabilitation unit. He was aware of urinary urgency and was unable to get to a urinal soon enough. He denies joint swelling or joint pain. He is aware of edema to his arms and legs. Otherwise a 10-point review of systems is negative. PHYSICAL EXAMINATION: VITAL SIGNS: Blood pressure is 115/66, heart rate is 74 , respiratory rate is 32, temperature is 97.5 degrees, oxygenation is 97% on room air. His weight is 106.1 kg. GENERAL: This is an obese, chronically ill appearing man lying in bed, alert, cooperative and in no acute distress. HEENT : Extraocular movements are intact. Pupils are equal, round, and reactive to light. Mucous membranes are moist. Dentition is in good condition. He has a crowded airway, Mallampati class 3. NECK: Supple and full. HEART: The heart is irregularly irregular. There are no murmurs, rubs, or gallops appreciated. He has JVD at least 3-4 cm above the sternal notch, but given his full neck it is difficult to assess further. He has edema 2+ bilaterally to the lower extremities and 1+ to 2+ bilaterally to the upper extremities. LUNGS: Clear to auscultation bilaterally, though he has bilateral rhonchi only on the lower lobes. ABDOMEN: Soft, nontender, nondistended with normoactive bowel sounds and no hepatosplenomegaly. His PEG site is clean. EXTREMITIES: There is no cyanosis or clubbing. Radial pulses are 2+ bilaterally. Pedal pulses are not palpable. NEUROLOGIC: He is alert and oriented x3. Cranial nerves II-XII are grossly intact. His right hand professor of rhetoric is 4/5, and motor strength otherwise overall is 4+/5. There is no pronator drift. Sensation is intact to light touch. He has bilateral upgoing toes on plantar reflex testing. SKIN: There is a well-approximated laceration approximately 2 cm on his occipital scalp. It is with alphonse in place and minimal eschar. CURRENT LEVEL OF FUNCTION per the pre-admission screen: He was on a regular diet with thin liquids, but he has instructions to take small bites upright at 90 degrees while eating and to remain upright 15-20 minutes after meals. He is to be checked for pocketing. He needs oral care, slow rate and supervision with meals. Grooming required supervision. Dressing required maximal assist for lower body. Toileting required moderate assist for transfers. Bed mobility required moderate assist. Transfers required minimal assist with voice cues. He used a front-wheeled walker. Seated balance required standby assist and standing balance minimal assist. His endurance was fair. He was able to ambulate with a front-wheeled walker and minimal assist for 12 feet x2 and 45 feet x1. He required seated breaks and increased time. Regarding cognition, he was noted to have mild cognitive impairment in attention, sequencing, mental manipulation and word retrieval. On today's exam there is no significant difference from the preadmission screen. IMPRESSION: This patient is a 72-year-old man who has had a prolonged hospital course including pulseless electrical activity/cardiac arrest x2, Pseudomonas pneumoniae, intubation, tracheostomy and PEG placement, and cardiac catheterization with placement of drug-eluting stents. He eventually was stabilized sufficiently for transfer to inpatient rehabilitation, where he initially made progress but then was found to have a bleeding laceration on his posterior scalp along with headache and confusion. He was rehospitalized where the laceration was stapled and he was found to have a subdural hematoma, so, presumably, there was an unwitnessed fall. His most recent hospital course was complicated by fluid overload, for which he has been treated with furosemide. If the scales at [facility] are consistent with the scale at [facility], he has had approximately a 2-kg diuresis but remains 2 kg up from his last weight on inpatient rehabilitation. Due to the subdural hematoma, warfarin was discontinued and he had a platelet transfusion to reverse the effects of aspirin and clopidogrel. He did not require surgery and the subdural hematoma was stable on serial CT scans. He is appropriate for inpatient rehabilitation to optimize mobility, activities of daily living, cognition, and swallowing function. His goal is to complete a rehabilitation stay and return home with his . For a safe discharge he will need to accomplish independence with eating and to be tolerating a regular diet. He will need to have sufficient caloric intake by mouth for removal of the PEG tube. He will need to achieve modified independence for bed mobility, grooming, dressing, transfers, and ambulation with the least restrictive device on level and unlevel surfaces. He may continue to require supervision and assistance for bathing for safety, depending on his progress. He will need to be medically stable and able to be discharged home with supportive services. Ideally, he will also have insight into any limitations and using compensatory strategies to maintain safety. He will have therapy with physical therapy, occupational therapy, and speech and language pathology for 60 minutes per day for each discipline on 5-7 days of the week. His expected duration of stay is 10-14 days. It is anticipated that upon discharge he will continue to benefit from home health services including nursing, speech and language pathology, a nurse's aide , occupational therapy, and physical therapy. Additionally, he will benefit from a stroke support group. PLAN: 1. Debility following prolonged hospitalization compounded by the effects of a left subdural hematoma. PT and OT to optimize mobility and activities of daily living toward the modified independent level. 2. Cognitive impairment and dysphagia. Aspiration precautions. Assessment and treatment per Speech and Language Pathology. 3. Fluid overload and diastolic congestive heart failure. He appears to be compensating adequately, though he has an elevated respiratory rate. Continue diuresis. Will increase his morning furosemide dose to 40 mg. Will have daily weights. Will have a chest x-ray done in the morning to further evaluate. 4. Obstructive sleep apnea. Continue CPAP at night. This may help his respiratory status through the night. 5. Chronic allergic rhinitis. Will resume azelastine nasal spray that he was using during his prior rehabilitation stay. Continue fluticasone nasal spray. Will add nasal saline p.r.n. Hesitate to continue oxymetazoline, though he requested it, due to concerns about rebound nasal congestion. However, if he is unable to tolerate CPAP tonight, will administer oxymetazoline. 6. Coronary artery disease status post drug-eluting stent. Continue aspirin and clopidogrel. 7. Hypertension. Continue amlodipine, carvedilol, and losartan. Monitor blood pressures with continued diuresis. 8. Benign prostatic hypertrophy. Continue finasteride and tamsulosin. 9. History of pneumonia and acute respiratory distress syndrome. Continue albuterol as needed. 10. Cough may be related to congestive heart failure versus possibility of pleural effusions. Continue benzonatate p.r.n. Will increase guaifenesin to 200 mg q.4 hours p.r.n., and will have a chest x-ray done in the morning. 11. Dyslipidemia. Continue atorvastatin. 12. Glaucoma. Continue eye drops. 13. Atrial fibrillation. With his recent intracerebral hemorrhage, warfarin is contraindicated in the short term. Continue clopidogrel and aspirin and continue carvedilol for rate control. Per discharge summary can consider resuming warfarin in 2-3 weeks. CHADS2-Vasc score is 4, consistent with [id number] risk for a CVA. HAS-BLED score is 4, consistent with an 8.9% risk of suffering a bleed per year. Will revisit the question of anticoagulation in 2-3 weeks. 14. Presence of PEG. I believe it can be removed after 11/17/2017. Will need to verify this. 15. Prophylaxis therapy. Pharmacologic anticoagulation is contraindicated. He will have SCDs at night. Will continue pantoprazole for GI protection. /[id number]/MODL MTDD
[2017-11-16] MEDS: ACETAMINOPHEN 325 MG TAB PO PRN (18:35)
[2017-11-16] MEDS: ATORVASTATIN CALCIUM 40 MG TAB PO SCH (19:43)
[2017-11-16] MEDS: BENZONATATE 100 MG CAP PO PRN (19:43)
[2017-11-16] MEDS: TAMSULOSIN HCL 0.4 MG CAP PO SCH (19:43)
[2017-11-16] MEDS: SENNOSIDES/DOCUSATE SODIUM TAB PO SCH (19:49)
[2017-11-16] MEDS: AZELASTINE NASAL MDI EACHNARE SCH ×2 (19:49→20:05)
[2017-11-16] MEDS: TIMOLOL 0.5% 15 ML OPHT.BTL EACHEYE SCH (19:53)
[2017-11-17] MEDS: ACETAMINOPHEN 325 MG TAB PO PRN ×4 (03:20→23:55)
[2017-11-17] MEDS: CLOPIDOGREL BISULFATE 75 MG TAB PO SCH (05:05)
[2017-11-17] MEDS: PANTOPRAZOLE SODIUM 40 MG TAB PO SCH (05:07)
[2017-11-17] MEDS: BENZONATATE 100 MG CAP PO PRN ×3 (05:07→23:26)
[2017-11-17] MEDS: CARVEDILOL 6.25 MG TAB PO SCH ×2 (08:11→17:18)
[2017-11-17] MEDS: LOSARTAN POTASSIUM 25 MG TAB PO SCH (08:11)
[2017-11-17] MEDS: ASPIRIN 81 MG CHEWABLE TAB PO SCH (08:11)
[2017-11-17] MEDS: FINASTERIDE 5 MG TAB PO SCH (08:12)
[2017-11-17] MEDS: FUROSEMIDE 40 MG TAB PO SCH (08:12)
[2017-11-17] MEDS: MULTIVITAMINS W-MINERALS 1 EACH TAB PO SCH (08:12)
[2017-11-17] MEDS: amLODIPine BESYLATE 5 MG TAB PO SCH (08:12)
[2017-11-17] MEDS: SENNOSIDES/DOCUSATE SODIUM TAB PO SCH ×2 (08:13→21:25)
[2017-11-17] MEDS: TIMOLOL 0.5% 15 ML OPHT.BTL EACHEYE SCH ×2 (08:19→22:38)
[2017-11-17] MEDS: AZELASTINE NASAL MDI EACHNARE SCH ×2 (08:20→17:50)
[2017-11-17] MEDS: DORZOLAMIDE 2% OPTH DROPS EACHEYE SCH (08:20)
[2017-11-17] MEDS: FLUTICASONE NASAL 120 SPRAYS/16 GM MDI EACHNARE SCH (08:24)
[2017-11-17] MEDS ORDERED: FUROSEMIDE 20 MG TAB PO SCH (09:00)
--- NOTE | 2017-11-17 11:20 | SOAPPROG ---
SOAP Progress Note Assessment/Plan: Assessment: Debility following prolonged hospitalization compounded by the effects of a left subdural hematoma. PT and OT to optimize mobility and activities of daily living toward the modified independent level. Cognitive impairment and dysphagia. Aspiration precautions. Assessment and treatment per Speech and Language Pathology. Fluid overload and diastolic congestive heart failure. He appears to be compensating adequately, though he has an elevated respiratory rate. BNP 2870 on 11/17/2017. Continue diuresis. Will increase his morning furosemide dose to 40 mg. * Chest x-ray this morning with stable findings of pleural effusions versus infiltrate, unchanged since September. * Weight is 106.6 on 11/17/2017. Was 106.1 on 11/16/2017. Continue increased dose of furosemide. Continue to monitor daily weights. * Recheck BMP and BNP on 11/20/2017. Obstructive sleep apnea. Continue CPAP at night. Chronic allergic rhinitis. Continue azelastine nasal spray and fluticasone nasal spray. Will add nasal saline p.r.n. Consider oxymetazoline if he is unable to tolerate CPAP due to nasal congestion.. Coronary artery disease status post drug-eluting stent. Continue aspirin and clopidogrel. Hypertension. Continue amlodipine, carvedilol, and losartan. Monitor blood pressures with continued diuresis. Benign prostatic hypertrophy. Continue finasteride and tamsulosin. * Has urinary incontinence. Check bladder scan to ensure it is not overflow incontinence. History of pneumonia and acute respiratory distress syndrome. Continue albuterol as needed. Cough may be related to congestive heart failure versus possibility of pleural effusions. Continue benzonatate p.r.n. Continue guaifenesin to 200 mg q.4 hours p.r.n. Dyslipidemia. Continue atorvastatin. Glaucoma. Continue eye drops. Atrial fibrillation. With his recent intracerebral hemorrhage, warfarin is contraindicated in the short term. Continue clopidogrel and aspirin and continue carvedilol for rate control. Per discharge summary can consider resuming warfarin in 2-3 weeks. CHADS2-Vasc score is 4, consistent with aggusocp-[id number]-[id number] risk for a CVA. HAS-BLED score is 4, consistent with an 8.9% risk of suffering a bleed per year. Will revisit the question of anticoagulation in 2-3 weeks. Presence of PEG. To be removed after 11/17/2017. Prophylaxis therapy. Pharmacologic anticoagulation is contraindicated. He will have SCDs at night. Will continue pantoprazole for GI protection. 11/17/17 13:08 Subjective: Have a headache. Last had a seated minute at approximately 3:30 a.m. In the morning. Says headache is 4/5 in intensity over the vertex. Denies vision changes, weakness numbness or tingling of the extremities. Has had urinary incontinence. Slept well. No cough or dyspnea. Objective: Vital Signs Temp Pulse Resp BP Pulse Ox 36.8 C 74 21 H 120/83 H 91 L 11/17/17 08:03 11/17/17 08:11 11/17/17 08:03 11/17/17 08:12 11/17/17 08:03 11/16/17 11/17/17 11/18/17 05:59 05:59 05:59 Intake Total 350 Output Total 550 450 Balance -200 -450 Physical Exam - Physical Exam General Appearance: WD/WN, alert, no apparent distress, obese Respiratory: normal breath sounds, No crackles, No rhonchi, No wheezing Cardiac/Chest: edema (2+ bilateral pretibial), irregularly irregular, No diastolic murmur, No systolic murmur Skin: normal color, warm/dry Neuro/Psych: alert, normal mood/affect, other (No pronator drift) ICD10 Worksheet Patient Problems: Problems Problem Status Onset Debility Acute
[2017-11-17 12:26] LABS: PLATELET COUNT 315 10^3/uL (150-400)
[2017-11-17] MEDS: FUROSEMIDE 20 MG TAB PO SCH (15:14)
[2017-11-17] MEDS: ALBUTEROL 60 PUFFS/8 GM MDI IH PRN ×2 (17:18→23:22)
--- NOTE | 2017-11-17 19:06 | PDOREHIP ---
Admission [facility] - Admission - 3 Day Assessment Period Admission Date/Day 1: 11/16/17 Day 2: 11/17/17 Day 3: 11/18/17 - Active Diagnoses Comorbidities and Co-existing Conditions at Admission: 05426. DM (e.g. diabetic retinopathy, nephropathy, and neuropathy) - Skin Conditions Unhealed Pressure Ulcer (1 or more/Stage 1 or >)-Admission: 0. No # Stage 1 Pressure Ulcers-Admission: 0 # Stage 2 Pressure Ulcers-Admission: 0 # Stage 3 Pressure Ulcers-Admission: 0 # Stage 4 Pressure Ulcers-Admission: 0 # Unstageable Pressure Ulcers (Non-remove Dress)-Admission: 0 # Unstageable Pressure Ulcers (Slough/Eschar)-Admission: 0 # Unstageable Pressure Ulcers (Deep Tissue Injury)-Admission: 0
[2017-11-17 19:41] LABS: PLATELET COUNT 332 10^3/uL (150-400)
[2017-11-17] MEDS: TAMSULOSIN HCL 0.4 MG CAP PO SCH (21:24)
[2017-11-17] MEDS: ATORVASTATIN CALCIUM 40 MG TAB PO SCH (21:24)
[2017-11-18] MEDS: guaiFENesin 200 MG/10 ML UDL PO PRN ×2 (03:56)
[2017-11-18] MEDS: ACETAMINOPHEN 325 MG TAB PO PRN ×2 (05:58→12:52)
[2017-11-18] MEDS: CLOPIDOGREL BISULFATE 75 MG TAB PO SCH (05:58)
[2017-11-18] MEDS: PANTOPRAZOLE SODIUM 40 MG TAB PO SCH (05:58)
[2017-11-18] MEDS: FINASTERIDE 5 MG TAB PO SCH (09:24)
[2017-11-18] MEDS: FUROSEMIDE 40 MG TAB PO SCH (09:24)
[2017-11-18] MEDS: MULTIVITAMINS W-MINERALS 1 EACH TAB PO SCH (09:24)
[2017-11-18] MEDS: CARVEDILOL 6.25 MG TAB PO SCH ×2 (09:25→17:56)
[2017-11-18] MEDS: amLODIPine BESYLATE 5 MG TAB PO SCH (09:25)
[2017-11-18] MEDS: ASPIRIN 81 MG CHEWABLE TAB PO SCH (09:25)
[2017-11-18] MEDS: LOSARTAN POTASSIUM 25 MG TAB PO SCH (09:27)
[2017-11-18] MEDS: AZELASTINE NASAL MDI EACHNARE SCH ×2 (09:28→21:04)
[2017-11-18] MEDS: SENNOSIDES/DOCUSATE SODIUM TAB PO SCH ×2 (09:29→21:04)
[2017-11-18] MEDS: DORZOLAMIDE 2% OPTH DROPS EACHEYE SCH (09:29)
[2017-11-18] MEDS: FLUTICASONE NASAL 120 SPRAYS/16 GM MDI EACHNARE SCH (09:29)
[2017-11-18] MEDS: TIMOLOL 0.5% 15 ML OPHT.BTL EACHEYE SCH ×2 (09:29→21:05)
[2017-11-18] MEDS: FUROSEMIDE 20 MG TAB PO SCH (12:52)
[2017-11-18] MEDS ORDERED: FUROSEMIDE 20 MG TAB PO ONE (13:06)
--- NOTE | 2017-11-18 13:17 | HOSPPROG ---
Hospitalist Progress Note Assessment/Plan: Assessment: 72 yo M p/w SDH c/b acute on chronic dCHF exacerbation Plan: # Acute on Chronic diastolic CHF exacerbation. Evidenced by R pleural effusion + pulm edema on CXR (personally interpreted) + BNP + cough -despite diuresing effectively (down to 104.5kg), his cough persists and infiltrates remain on imaging -increase lasix to 40mg bid today, repeat K/Cr in AM # Acute encephalopathy. Evidenced by global brain dysfunction characterized by delayed cognition/verbal responsiveness + confusion + inability to follow > 1 step commands, reportedly present yesterday warranting HCT/further eval, but was an acute change from baseline -HCT w/o increase in SDH/IPH -suspect that this is combination of metabolic effects of hospitalization + structural effects of ICH -monitor closely, d/w HEARING AIDE TECHNICIAN who recs we hold his PO intake until he is more directable -encourage CPAP to prevent hypercapnia, currently is not hypoxic (SpO2 94% on RA on RN check) -if persists tomorrow AM, will check ABG -check CBC/PCT to ensure his RLL ASD is not PNA # MAKAYLA. Patient needs to wear CPAP HS # HTN. Chronic, cont norvasc, coreg, losartan, SBP 120-130 # BPH. Chronic, cont finasteride/tamsulosin # CAD. Chronic, cont ASA/plavix # AFib. Pemanent, CHADS2-Vasc 4 w/ HAS-BLED 4 and recovering from active bleed, currently off anticoagulation -cont bblocker -currently not a candidate for DCCV given that he would require anticoagulation Diet. NPO until cognitively able to handle PO PPx. SCDs Code. Full Dispo. ADD uncertain, ongoing therapy needs. Subjective: patient didn't want to eat lunch w/o , had some issues w/ CPAP o /n, reports ongoing headache and cough Objective: Vital Signs Temp Pulse Resp BP Pulse Ox 36.4 C 78 18 134/83 H 95 11/17/17 20:05 11/18/17 08:00 11/18/17 08:00 11/18/17 11:45 11/18/17 08:00 Laboratory Results 11/17/17 19:30 11/17/17 19:30 11/17/17 11/18/17 11/19/17 05:59 05:59 05:59 Intake Total 350 1230 500 Output Total 550 500 Balance -200 730 500 - Physical Exam Constitutional: no apparent distress, chronically ill appearing, obese, uncomfortable Cardiovascular: irregularly irregular, JVD, edema (2+ bilat LE), No systolic murmur, No tachycardia Respiratory: reduced air movement (R base), inspiratory crackles (bilat bases), No expiratory wheeze, No bronchial breath sounds, No respiratory distress Gastrointestinal: normoactive bowel sounds, distension (moderate), other ( umbilical hernia, reducible, non-tender; G-tube in), No guarding Neurologic: AAOx3, other (able to only follow some 1-step commands, very mild R hand tremulousness, no seizurelike movements) Psychiatric: not anxious, encephalopathic, flat affect, poor insight, poor memory, No agitated ICD10 Worksheet Patient Problems: Problems Problem Status Onset Debility Acute
[2017-11-18] MEDS ORDERED: diphenhydrAMINE 25 MG CAP PO PRN (13:44)
[2017-11-18] MEDS ORDERED: oxyCODONE IR 5 MG TAB PO PRN (13:44)
[2017-11-18] MEDS: ACETAMINOPHEN 500 MG TAB PO SCH ×2 (15:13→22:35)
[2017-11-18] MEDS: TAMSULOSIN HCL 0.4 MG CAP PO SCH (21:04)
[2017-11-18] MEDS: ATORVASTATIN CALCIUM 40 MG TAB PO SCH (21:04)
[2017-11-18] MEDS ORDERED: MELATONIN 3 MG TAB ONE (23:23)
[2017-11-18] MEDS ORDERED: MELATONIN 3 MG TAB PO ONE (23:45)
[2017-11-19] MEDS ORDERED: MELATONIN 3 MG TAB PO ONE
[2017-11-19] MEDS: guaiFENesin 200 MG/10 ML UDL PO PRN ×3 (00:30→14:25)
[2017-11-19] MEDS: BENZONATATE 100 MG CAP PO PRN ×2 (01:02→14:25)
[2017-11-19] MEDS: ALBUTEROL 60 PUFFS/8 GM MDI IH PRN ×2 (05:11→13:58)
[2017-11-19] MEDS: CLOPIDOGREL BISULFATE 75 MG TAB PO SCH (07:14)
[2017-11-19] MEDS: PANTOPRAZOLE SODIUM 40 MG TAB PO SCH (07:14)
[2017-11-19] MEDS: ACETAMINOPHEN 500 MG TAB PO SCH ×3 (07:14→21:27)
[2017-11-19 08:04] LABS: PLATELET COUNT 334 10^3/uL (150-400)
[2017-11-19] MEDS: FLUTICASONE NASAL 120 SPRAYS/16 GM MDI EACHNARE SCH (08:41)
[2017-11-19] MEDS: AZELASTINE NASAL MDI EACHNARE SCH ×2 (08:41→19:56)
[2017-11-19] MEDS: DORZOLAMIDE 2% OPTH DROPS EACHEYE SCH (08:42)
[2017-11-19] MEDS: FINASTERIDE 5 MG TAB PO SCH (08:42)
[2017-11-19] MEDS: TIMOLOL 0.5% 15 ML OPHT.BTL EACHEYE SCH ×2 (08:42→19:55)
[2017-11-19] MEDS: ASPIRIN 81 MG CHEWABLE TAB PO SCH (08:43)
[2017-11-19] MEDS: MULTIVITAMINS W-MINERALS 1 EACH TAB PO SCH (08:43)
[2017-11-19] MEDS: amLODIPine BESYLATE 5 MG TAB PO SCH (08:43)
[2017-11-19] MEDS: LOSARTAN POTASSIUM 25 MG TAB PO SCH (08:43)
[2017-11-19] MEDS: CARVEDILOL 6.25 MG TAB PO SCH ×2 (08:43→18:03)
[2017-11-19] MEDS: SENNOSIDES/DOCUSATE SODIUM TAB PO SCH ×2 (08:43→19:23)
[2017-11-19] MEDS ORDERED: FUROSEMIDE 40 MG TAB PO SCH (09:00)
[2017-11-19] MEDS ORDERED: POTASSIUM CL 20 MEQ TAB PO ONE (10:55)
[2017-11-19] MEDS: FUROSEMIDE 20 MG TAB PO SCH (13:52)
[2017-11-19] MEDS ORDERED: LIDOCAINE 2% JELLY 20 ML (UROJECT) UR PRN (14:15)
[2017-11-19] MEDS: ATORVASTATIN CALCIUM 40 MG TAB PO SCH (19:56)
[2017-11-19] MEDS: TAMSULOSIN HCL 0.4 MG CAP PO SCH (19:56)
--- NOTE | 2017-11-19 23:28 | HOSPPROG ---
Hospitalist Progress Note Assessment/Plan: Assessment: 72 yo M p/w SDH c/b acute on chronic dCHF exacerbation c/b acute encephalopathy and hematuria Plan: # Acute on Chronic diastolic CHF exacerbation. Evidenced by R pleural effusion + pulm edema on CXR + BNP + cough -significantly diuresed over past 24hrs (down to 102.8kg), his cough persists and he has ongoing 2+ bilat LE edema -that said, he appears to be breathing comfortably on room air -adjust lasix dosing back to 40 AM, 20 PM to prevent AUDREY and facilitate progressive diuresis -dose K 40mEq today, added 20mEq daily, recheck K/Cr in AM # Acute encephalopathy. After a better night sleep and good PO intake this AM, his cog fxn is significantly improved this AM -counseled son/family extensively that I suspect that this is combination of metabolic effects of hospitalization (interrupted sleep w/ recent ED visit, pain impairing ability to engage 11/18) + an underlying cog impairment from critical illness (his Good Je notes indicate suspected anoxic injury) -counseled family that they are likely to experience fluctuating levels depending on cog fatigue from therapy, sleep the night before, etc. -son had good understanding of this, and agreed to communicate this w/ his mother, who was unable to be present during family rounds today b/c of weather -family requested roll-belt when in chair, patient agreed, order placed # Fall. Patient had an unwitnessed slide from his chair 10 PM, hard collar recommended o/n but patient electively removed -evaluation today demonstrated no inducible pain on full ROM neck, no CORDERO, and improved cognition -no indication for head or neck CT -roll belt as above, bed alarm # Hematuria. Acute, vivienne blood likely from distal urethral irritation/tear -d/w Urology (Margot Grajeda/Dr. Terence Chirinos), originally agreed w/ placement of large gauge hurtado w/ 3-way capability in case CBI needed, and 24" emirati placed w/o incident -urojet PRN if irritation at meatus/distal urethra continues -hurtado likely providing local pressure to lac, continue x 48hrs then removal -monitor hurtado output, currently only small clots so no indication for CBI -if further w/u indicated, patient can be transported to Dr. Chirinos's office for cystoscopy -UA w/ blood, no infxn, repeat Hgb in AM (unable to draw this afternoon) # MAKAYLA. Patient needs to wear CPAP HS # HTN. Chronic, cont norvasc, coreg, losartan, SBP 110-130 # BPH. Chronic, cont finasteride/tamsulosin # CAD. Chronic, cont ASA/plavix # AFib. Pemanent, CHADS2-Vasc 4 w/ HAS-BLED 4 and recovering from active bleed, currently off anticoagulation -cont bblocker -currently not a candidate for DCCV given that he would require anticoagulation Diet. As marissa PPx. SCDs Code. Full Dispo. ADD uncertain, ongoing therapy needs. Subjective: cognitively improved, had a slide out of chair last night, having vivienne blood from meatus today Objective: Vital Signs Temp Pulse Resp BP Pulse Ox 37.3 C 73 18 131/81 H 94 11/19/17 19:43 11/19/17 19:43 11/19/17 19:43 11/19/17 19:43 11/19/17 19:43 Laboratory Results 11/19/17 06:00 11/19/17 06:00 11/18/17 11/19/17 11/20/17 05:59 05:59 05:59 Intake Total 1230 850 720 Output Total 1400 260 750 Balance -170 590 -30 - Time Spent With Patient Time Spent with Patient: greater than 35 minutes Time Spent with Patient: Greater than 35 minutes spent on this patients care, greater than 50% of time spent counseling, educating, and coordinating care regarding the above mentioned plan. - Physical Exam Constitutional: no apparent distress, not in pain, chronically ill appearing Cardiovascular: irregularly irregular, edema (2+ bilat LE), No systolic murmur, No tachycardia Respiratory: inspiratory crackles (bilat bases), No reduced air movement, No expiratory wheeze, No bronchial breath sounds, No respiratory distress Genitourinary: other (vivienne blood w/ stringy clot coming from meatus, no external lacs visualized, penis non-tender) Musculoskeletal: other (full ROM neck w/o pain) Neurologic: AAOx3, sensation intact bilaterally, weakness (4/5 motor bilat LE, 5 /5 motor bilat UE) Psychiatric: not anxious, flat affect, other (concentration 7/7, naming 3/3, following commands), No agitated ICD10 Worksheet Patient Problems: Problems Problem Status Onset Debility Acute
[2017-11-20] MEDS: BENZONATATE 100 MG CAP PO PRN (03:17)
[2017-11-20] MEDS: guaiFENesin 200 MG/10 ML UDL PO PRN (03:17)
[2017-11-20] MEDS: ALBUTEROL 60 PUFFS/8 GM MDI IH PRN (03:17)
[2017-11-20] MEDS: ACETAMINOPHEN 500 MG TAB PO SCH ×2 (06:15→14:08)
[2017-11-20] MEDS: CLOPIDOGREL BISULFATE 75 MG TAB PO SCH (06:15)
[2017-11-20] MEDS: PANTOPRAZOLE SODIUM 40 MG TAB PO SCH (06:15)
[2017-11-20] MEDS ORDERED: traMADol 50 MG TAB PO PRN (07:39)
[2017-11-20] MEDS: CARVEDILOL 6.25 MG TAB PO SCH (08:03)
[2017-11-20] MEDS: ASPIRIN 81 MG CHEWABLE TAB PO SCH (08:54)
[2017-11-20] MEDS: FINASTERIDE 5 MG TAB PO SCH (08:54)
[2017-11-20] MEDS: amLODIPine BESYLATE 5 MG TAB PO SCH (08:54)
[2017-11-20] MEDS: MULTIVITAMINS W-MINERALS 1 EACH TAB PO SCH (08:55)
[2017-11-20] MEDS: LOSARTAN POTASSIUM 25 MG TAB PO SCH (08:58)
[2017-11-20] MEDS ORDERED: FUROSEMIDE 40 MG TAB PO SCH (09:00)
[2017-11-20] MEDS ORDERED: POTASSIUM CL 20 MEQ TAB PO SCH (09:00)
[2017-11-20] MEDS: SENNOSIDES/DOCUSATE SODIUM TAB PO SCH (09:01)
[2017-11-20 09:08] LABS: PLATELET COUNT 346 10^3/uL (150-400)
--- NOTE | 2017-11-20 09:42 | SOAPPROG ---
SOAP Progress Note Assessment/Plan: Assessment: Debility following prolonged hospitalization compounded by the effects of a left subdural hematoma. * Initial functional independence measure is 36 on 11/20/2017. Prior to his SDH he was independent in his room. Currently requires minimal to moderate assist of 2 for bed mobility, moderate to max assist for transfers and moderate to total assist for ADLs. He ambulated 60-70 feet with front wheeled walker, moderate assist and wheelchair following. * Continue PT and OT to optimize mobility and activities of daily living toward the modified independent level. Cognitive impairment and dysphagia. Aspiration precautions. Assessment and treatment per Speech and Language Pathology. * Concerns about arousal impairing ability to interact and cognitive function. Continue to monitor. Consider stimulant, though 1st priority seems to be effective sleep and headache control. Fluid overload and diastolic congestive heart failure. He appears to be compensating adequately, though he has an elevated respiratory rate. BNP 2870 on 11/17/2017. Continue diuresis. Will increase his morning furosemide dose to 40 mg. * Chest x-ray 11/17/2017 with stable findings of pleural effusions versus infiltrate, unchanged since September. * Weight is 106.6 kg on 11/17/2017. 103.1 kg on 11/20/2017.. Continue increased dose of furosemide. Continue to monitor daily weights. * Recheck BMP on 11/20/2017. Headache and mental status fluctuations. * Head CT 11/17/2017 ruled out evolution of bleed or hydrocephalus. * Mental status fluctuations likely due to pain and sleep issues compounding cognitive impairment due to prolonged critical illness. * Headache responded to low-dose tramadol. Consider initiating nortriptyline at HS for prophylaxis. Atrial fibrillation. With his recent intracerebral hemorrhage, warfarin is contraindicated in the short term. Continue clopidogrel and aspirin and continue carvedilol for rate control. Per discharge summary can consider resuming warfarin in 2-3 weeks. CHADS2-Vasc score is 4, consistent with [id number] risk for a CVA. HAS-BLED score is 4, consistent with an 8.9% risk of suffering a bleed per year. Will revisit the question of anticoagulation in 2-3 weeks. Urethral bleed noted 11/19/2017. To catheter placed. Plan to discontinue on 11/22/2017. Consider urology evaluation if it persists. Obstructive sleep apnea. Continue CPAP at night. Chronic allergic rhinitis. Continue azelastine nasal spray and fluticasone nasal spray. Will add nasal saline p.r.n. Consider oxymetazoline if he is unable to tolerate CPAP due to nasal congestion.. Coronary artery disease status post drug-eluting stent. Continue aspirin and clopidogrel. Hypertension. Continue amlodipine, carvedilol, and losartan. Monitor blood pressures with continued diuresis. Benign prostatic hypertrophy. Continue finasteride and tamsulosin. * Has urinary incontinence. No urinary retention on bladder scan History of pneumonia and acute respiratory distress syndrome. Continue albuterol as needed. Cough may be related to congestive heart failure versus possibility of pleural effusions. Continue benzonatate p.r.n. Continue guaifenesin to 200 mg q.4 hours p.r.n. Dyslipidemia. Continue atorvastatin. Glaucoma. Continue eye drops. Presence of PEG. Can be removed after 11/17/2017. Given frailty and urethral bleed hesitate to risk any complications of removal at present (11/20/2017). Prophylaxis therapy. Pharmacologic anticoagulation is contraindicated. He will have SCDs at night. Will continue pantoprazole for GI protection. Disposition: Attended staffing, 15 min. Discussed with case management, nursing, dietitian, PT, OT, [employer]. Goal has been safe. This will depend on his progress in rehabilitation. Set tentative discharge date for 12/05/2017. Extensive discussions with on 11/20/2017 regarding condition and prognosis. Expect improvement but may remain dependent in 1 or more ADL. 11/20/17 12:17 Subjective: Awoke with a headache. Says he slept well. Headache did not respond to acetaminophen, but has resolved completely with 50 mg of tramadol. No cough or dyspnea. Objective: Vital Signs Temp Pulse Resp BP Pulse Ox 36.9 C 74 17 154/92 H 95 11/20/17 06:29 11/20/17 06:29 11/20/17 06:29 11/20/17 06:29 11/20/17 06:29 Laboratory Results 11/20/17 07:30 11/19/17 11/20/17 11/21/17 05:59 05:59 05:59 Intake Total 850 970 Output Total 260 1325 Balance 590 355 - Time Spent With Patient Time Spent With Patient: Greater than 35 min floor time today, including more than 50% of time in coordination of care during staffing, and counseling patient and . Physical Exam - Physical Exam General Appearance: WD/WN, alert, no apparent distress, obese Respiratory: normal breath sounds, other (Bronchophony lower lobes), No crackles , No rhonchi, No wheezing Cardiac/Chest: edema (2+ bilateral pretibial), JVD ([place] from clavicle to mandible), irregularly irregular, No diastolic murmur, No systolic murmur Skin: normal color, warm/dry Neuro/Psych: alert, normal mood/affect, other (Fluctuating level of consciousness. Has periods of interactivity and periods of somnolence. Very slow processing.) ICD10 Worksheet Patient Problems: Problems Problem Status Onset Debility Acute
[2017-11-20] MEDS: AZELASTINE NASAL MDI EACHNARE SCH (11:53)
[2017-11-20] MEDS: FLUTICASONE NASAL 120 SPRAYS/16 GM MDI EACHNARE SCH (11:56)
[2017-11-20] MEDS: DORZOLAMIDE 2% OPTH DROPS EACHEYE SCH (12:24)
[2017-11-20] MEDS: TIMOLOL 0.5% 15 ML OPHT.BTL EACHEYE SCH (12:25)
[2017-11-20] MEDS: FUROSEMIDE 20 MG TAB PO SCH (14:10)
[2017-11-20 14:27] VITALS: BP 111/83
--- NOTE | 2017-11-20 15:32 | PDOREHIP ---
Admission [facility] - Admission - 3 Day Assessment Period Admission Date/Day 1: 11/16/17 Day 2: 11/17/17 Day 3: 11/18/17 Discharge [facility] - Discharge Skin Conditions Unhealed Pressure Ulcer (1 or more/Stage 1 or >)-Discharge: 0. No # Stage 1 Pressure Ulcers-Discharge: 0 # Stage 2 Pressure Ulcers-Discharge: 0 # of These Stage 2 Pressure Ulcers Present on Admission: 0 # Stage 3 Pressure Ulcers-Discharge: 0 # of These Stage 3 Pressure Ulcers Present on Admission: 0 # Stage 4 Pressure Ulcers-Discharge: 0 # of These Stage 4 Pressure Ulcers Present on Admission: 0 # Unstageable Pressure Ulcers (Non-remove Dress)-Discharge: 0 # These Unstageable Pressure Ulcers (NRD)-Present on Admit: 0 # Unstageable Pressure Ulcers (Slough/Eschar)-Discharge: 0 # These Unstageable Pressure Ulcers(Slough) Present on Admit: 0 # Unstageable Pressure Ulcers (Deep Tissue Injury)-Discharge: 0 # These Unstageable Pressure Ulcers (DTI) Present on Admit: 0
--- NOTE | 2017-11-20 19:47 | GDS ---
ADMITTING DIAGNOSIS: Debility status post subdural hematoma. DISCHARGE DIAGNOSIS: Debility status post subdural hematoma. OTHER DISCHARGE DIAGNOSES: 1. Altered mental status and rule out seizures. 2. Debility following prolonged complicated series of hospitalizations. 3. Congestive heart failure. 4. Atrial fibrillation. 5. Urethral bleed. 6. Coronary artery disease status post drug-eluting stent placement. 7. Hypertension. 8. Presence of percutaneous endoscopic gastrostomy tube. CONSULTATIONS: There were none. COMPLICATIONS: He had fluctuating mental status. PROCEDURES: There were none. HISTORY AND HOSPITAL COURSE: This patient returned to [facility] from [facility]. He was in rehabilitation following a prolonged hospitalization, and for details, please see H and P and discharge summary from his prior rehabilitation stay 11/06/2017 to 11/12/2017.. He was discharged from his prior stay following a suspected non witnessed fall with head trauma, an occipital scalp laceration, headache, and mental status changes. At that time, he was admitted to [facility] where he was diagnosed with a left-sided subdural hematoma as well as subarachnoid hemorrhage. These were stable radiographically and he was doing well cognitively. He had the Jean Cognitive Assessment done at [facility] on 11/15/2017, and he scored 25/30, which is just below the threshold for normal cognitive function. During his rehab stay, he had decline in his cognitive function as well as mobility and activities of daily living. Whereas he had been independent in his room prior to his fall and rehospitalization, on the day of hospital discharge, functional independence measure was 36, which was very low and consistent with fpc level of care and requiring assistance with all activities of daily living and mobility as well as cognition. He had headaches and initially he appeared to have improved alertness with treatment of headache on 11/20/2017, but subsequently was noted to arouse and alert to verbal stimulation but to have no verbal response and not be following commands. He could not work with therapies. His condition was discussed with neurosurgery, Dr. Hernández, who had seen him at [facility] and with neurologist, Dr. Boss, regarding the possibility of subclinical seizures causing fluctuating level of consciousness and possibly aphasia. With this consideration in mind, he was rehospitalized at [facility] with the hope that he would obtain an EEG while he was there to rule out seizures or if there were no seizures that the etiology of his mental status changes would be elucidated and treated. It is hoped that he can return to rehabilitation following his hospital stay. DISCHARGE PLAN: Condition upon discharge is guarded to fair. DISCHARGE DISPOSITION: [facility] where the accepting service is the [facility] service and there will be consultation with Neurology and Neurosurgery. DIET: Regular. DISCHARGE MEDICATIONS: 1. Acetaminophen 1000 mg p.o. q.8 hours. 2. Albuterol 2 puffs inhaled q.4 hours. 3. Amlodipine 5 mg p.o. daily. 4. Aspirin 81 mg p.o. daily. 5. Atorvastatin 40 mg p.o. q.h.s. 6. Azelastine nasal spray 2 sprays each naris b.i.d. 7. Benzonatate 100 mg p.o. t.i.d. p.r.n. 8. Calcium carbonate 500 mg p.o. q.i.d. p.r.n. 9. Carvedilol 12.5 mg p.o. b.i.d. 10. Cetirizine 10 mg p.o. daily p.r.n. 11. Clopidogrel 75 mg p.o. daily. 12. Dorzolamide drops each eye daily. 13. Finasteride 5 mg p.o. daily. 14. Fluticasone 2 sprays each naris daily. 15. Furosemide 40 mg q.a.m. and 20 mg q.p.m. at 1400. 16. Guaifenesin 50 mL p.o. q.i.d. p.r.n. 17. Lactulose 20 g p.o. q.6 hours p.r.n. 18. Lidocaine 2% jelly to the urethra p.r.n. pain. 19. Losartan 25 mg p.o. daily. 20. Systane nighttime eye ointment daily p.r.n. 21. Multivitamin. 22. Nitroglycerin 0.4 mg sublingual q.5 minutes p.r.n. chest pain. 23. Pantoprazole 40 mg p.o. daily. 24. Polyethylene glycol 17 g p.o. daily. 25. Potassium chloride 20 mEq p.o. daily. 26. Senna/docusate 1 tab p.o. b.i.d. 27. Sodium chloride nasal each naris p.r.n. 28. Tamsulosin 0.4 mg p.o. q.h.s. 29. Timolol 1 drop each eye b.i.d. 30. Tramadol 50 mg p.o. q. 6 hours p.r.n. ISSUES TO BE ADDRESSED AT FOLLOWUP: 1. Mental status changes. 2. Congestive heart failure and fluid overload. Continue furosemide and potassium chloride. His most recent weight was 103.1 kg which represents a 3 kg diuresis during his rehabilitation stay. 3. Urethral tear and urethral bleeding. He has a To catheter in place and it can be removed on November 22. If he has persistent bleeding, then he needs an evaluation by Urology. 4. Hypertension. Continue his antihypertensive medications. 5. Coronary artery disease status post stenting. Continue aspirin and clopidogrel. 6. Atrial fibrillation. His CHADS2-VASC score is consistent with sufficiently elevated risk to indicate systemic anticoagulation. However, his has bled score is consistent with a 9% risk of intracranial hemorrhage per year. He has a recent subdural hematoma and subarachnoid hemorrhage, so systemic anticoagulation is contraindicated at present. 7. Obstructive sleep apnea. He should continue CPAP nightly. Copy requested to: [facility] Brynn Sinclaircathy Carlo [facility] /[id number]/MODL MTDD
== END 2017-11-20 17:18 | disposition short-term general hospital (02) | DRG 945 ==
LOC: BREH 15:16
PROVIDERS: ADMIT Internal Medicine; ATTEND Internal Medicine
DX: S06.6X0D Traumatic subarachnoid hemorrhage without loss of consciousness, subsequent encounter (principal); W18.39XD Other fall on same level, subsequent encounter; Y92.230 Patient room in hospital as the place of occurrence of the external cause; I48.2 Chronic atrial fibrillation; N40.1 Benign prostatic hyperplasia with lower urinary tract symptoms; G47.33 Obstructive sleep apnea (adult) (pediatric); E78.5 Hyperlipidemia, unspecified; I11.0 Hypertensive heart disease with heart failure; I50.30 Unspecified diastolic (congestive) heart failure; H40.1190 Primary open-angle glaucoma, unspecified eye, stage unspecified; E66.01 Morbid (severe) obesity due to excess calories; R13.10 Dysphagia, unspecified; G31.84 Mild cognitive impairment of uncertain or unknown etiology; J31.0 Chronic rhinitis; I25.10 Atherosclerotic heart disease of native coronary artery without angina pectoris; Z93.1 Gastrostomy status; Z96.653 Presence of artificial knee joint, bilateral; Z79.01 Long term (current) use of anticoagulants
CPT/HCPCS: 92507-GN; 92523-GN; 92526-GN; 92610-GN; 97110-GP; 97112-GP; 97116-GP; 97162-GP; 97166-GO; 97530-GO; 97530-GP; 97535-GO